=== PATIENT | female | born 1950 | race Caucasian/White ===

== ENCOUNTER 2021-02-21 11:24 | Day surgery (SDC) | payer OTHER, SELFPAY ==
[2021-02-21 12:04] VITALS: BP 115/69; PULSE 73; RESP 14; TEMP 36.6; O2SAT 96; BMI 26.6
[2021-02-21] MEDS: PROPARACAINE 0.5% OPHTH SOL 2 DROPS EYE-OP (12:13)
[2021-02-21] MEDS: CATARACT EYE COMPOUND (10 DROPS/SYRINGE) 3 DROPS EYE-OP (12:13)
--- NOTE | 2021-02-21 12:54 | P.OP_ITS ---
Operative Date/Time/Diagnoses Pre-op diagnosis: Nuclear cataract right eye Procedure & Clinicians Procedure: Cataract Surgery Same procedure as scheduled: Yes Surgeon: Emanuel Nelson Anesthesia Type: MAC +/- and Sedation Operative Notes Procedure in detail: Patient brought to the operating suite. Tetracaine drops placed in the right eye. Marking instrument was used to haresh vertical and horizontal meridians. Patient was prepped and draped in sterile manner. Wire lid speculum was placed in the eye. Marking instrument was used to haresh 110 degree meridian. Betadine drops were placed on the eye. This was irrigated. Lidocaine jelly was placed on the eye. A paracentesis port was created with a side-port blade. 0.1 mL 1% preservative free lidocaine was injected into the anterior chamber. The anterior chamber was deepened with viscoelastic. 2.6 mm keratome was used to create a temporal clear corneal incision. Cystotome and Utrata forceps were used to create continuous tear capsulorrhexis. Balanced salt solution was used to hydro dissect the nucleus. The phacoemulsification handpiece was inserted and the nucleus was removed using the stop and chop technique. The irrigation aspiration handpiece was inserted and the remaining cortex was removed. Anterior chamber was deepened with viscoelastic. An Chinchilla TSM180 intraocular lens with a power of 20.5 was injected into the capsular bag. Irrigation aspiration handpiece was inserted and the remaining viscoelastic was removed. The lens was rotated to the 110 degree meridian. Incision was hydrated with balanced salt solution and found to be leak free with pressure with Weck- Carli sponges. 0.1 mL Vigamox injected anterior chamber. 0.3 mL Kenalog 10 mg was injected subconjunctivally. Lid speculum was removed. The patient left the operating room in excellent condition. Complications: none Post-operative Condition: stable Disposition: same day surgery
--- NOTE | 2021-02-21 12:54 | PM.PREOP ---
Pre-operative Note Interval Note History & Physical reviewed/Exam performed by Physician: Yes Changes to H&P: No
--- NOTE | 2021-02-21 13:05 | SUR.OPER ---
Supine on eye stretcher, head on extension cradle secured with tape. Arms tucked at sides with blanket. Pillow under knees.
[2021-02-21] MEDS: CHONDROIDTIN/SOD HYALURONATE 1.05 ML SYRINGE INTRAOCULA (13:12)
[2021-02-21] MEDS: LIDOCAINE 2% (GLYDO) 6 ML GEL TOP (13:12)
[2021-02-21] MEDS: MOXIFLOXACIN INJ 4 MG/0.8 ML VIAL 0.5 MG EYE-OP (13:13)
[2021-02-21] MEDS: PHENYLEPHRINE/LIDOCAINE VIAL (OR) 0.2 ML EYE-OP (13:13)
[2021-02-21] MEDS: TRIAMCINOLONE 50 MG/5 ML VIAL INJ (13:13)
[2021-02-21] MEDS: TETRACAINE 0.5% OPHTH DROPS 4 ML 2 DROPS EYE-OP (13:13)
[2021-02-21] MEDS: BALANCED SALT IRRIG SOLN NO.2 500 ML, EPINEPHrine 1 MG IRR (13:14)
[2021-02-21 13:30] VITALS: BP 93/49; PULSE 71; RESP 14; TEMP 35.9; O2SAT 95
[2021-02-21 13:45] VITALS: BP 104/60; PULSE 73; RESP 16; TEMP 36.3; O2SAT 97
--- NOTE | 2021-02-21 13:59 | SUR.PHASEII ---
1350 was given juice, crackers, and protein, states that she feels better and is ready to go home.
== END 2021-02-21 13:51 | disposition home or self-care (01) ==
LOC: OR 11:29
PROVIDERS: Referring Provider Ophthalmology; Visit Provider Ophthalmology
PROC: (CPT 66984; principal; 2021-02-21 13:15)
DX: H25.11 Age-related nuclear cataract, right eye (principal); F41.9 Anxiety disorder, unspecified; J45.909 Unspecified asthma, uncomplicated; I10 Essential (primary) hypertension; E78.00 Pure hypercholesterolemia, unspecified; E03.9 Hypothyroidism, unspecified
CPT/HCPCS: 66984; J0171; J2250; J3010; J3301; V2787

== ENCOUNTER 2021-03-07 09:24 | Day surgery (SDC) | payer OTHER, SELFPAY ==
[2021-03-07 10:09] VITALS: BP 125/70; PULSE 71; RESP 16; TEMP 36.1; O2SAT 96; BMI 27.4
[2021-03-07] MEDS: PROPARACAINE 0.5% OPHTH SOL 2 DROPS EYE-OP (10:09)
[2021-03-07] MEDS: CATARACT EYE COMPOUND (10 DROPS/SYRINGE) 3 DROPS EYE-OP (10:26)
--- NOTE | 2021-03-07 10:49 | P.OP_ITS ---
Operative Date/Time/Diagnoses Pre-op diagnosis: Nuclear Cataract Left eye Post-op diagnosis: same Procedure & Clinicians Same procedure as scheduled: Yes Surgeon: Emanuel Nelson Anesthesia Type: MAC +/- and Sedation Operative Notes Procedure in detail: Patient brought to the operating suite. Tetracaine drops placed in the left eye. Marking instrument was used to haresh vertical and horizontal meridians. Patient was prepped and draped in sterile manner. Wire lid speculum was placed in the eye. Marking instrument was used to haresh 65 degree meridian. Betadine drops were placed on the eye. This was irrigated. Lidocaine jelly was placed on the eye. A paracentesis port was created with a side-port blade. 0.1 mL 1% preservative free lidocaine was injected into the anterior chamber. The anterior chamber was deepened with viscoelastic. 2.6 mm keratome was used to create a temporal clear corneal incision. Cystotome and Utrata forceps were used to create continuous tear capsulorrhexis. Balanced salt solution was used to hydro dissect the nucleus. The phacoemulsification handpiece was inserted and the nucleus was removed using the stop and chop technique. The irrigation aspiration handpiece was inserted and the remaining cortex was removed. Anterior chamber was deepened with viscoelastic. An Chinchilla [id number] intraocular lens with a power of 21.5 was injected into the capsular bag. Irrigation aspiration handpiece was inserted and the remaining viscoelastic was removed. The lens was rotated to the 65 degree meridian. Incision was hydrated with balanced salt solution and found to be leak free with pressure with Weck- Carli sponges. 0.1 mL Vigamox injected anterior chamber. 0.3 mL Kenalog 10 mg was injected subconjunctivally. Lid speculum was removed. The patient left the operating room in excellent condition. Complications: none Post-operative Condition: stable Disposition: same day surgery
--- NOTE | 2021-03-07 10:49 | PM.PREOP ---
Pre-operative Note Interval Note History & Physical reviewed/Exam performed by Physician: Yes Changes to H&P: No
[2021-03-07] MEDS: CHONDROIDTIN/SOD HYALURONATE 1.05 ML SYRINGE INTRAOCULA (11:18)
[2021-03-07] MEDS: PHENYLEPHRINE/LIDOCAINE VIAL (OR) 0.2 ML EYE-OP (11:19)
[2021-03-07] MEDS: TETRACAINE 0.5% OPHTH DROPS 4 ML 2 DROPS EYE-OP (11:19)
[2021-03-07] MEDS: LIDOCAINE 2% (GLYDO) 6 ML GEL TOP (11:19)
[2021-03-07] MEDS: MOXIFLOXACIN INJ 4 MG/0.8 ML VIAL 0.5 MG EYE-OP (11:19)
[2021-03-07] MEDS: TRIAMCINOLONE 50 MG/5 ML VIAL INJ (11:19)
[2021-03-07] MEDS: BALANCED SALT IRRIG SOLN NO.2 500 ML, EPINEPHrine 1 MG IRR (11:20)
[2021-03-07 11:37] VITALS: BP 83/49; PULSE 67; RESP 14; TEMP 36.1; O2SAT 98
[2021-03-07] MEDS: LACTATED RINGERS 500 ML 1000 ML IV (12:30)
[2021-03-07 12:35] VITALS: BP 93/54; PULSE 77; RESP 14; O2SAT 97
[2021-03-07 13:03] VITALS: BP 91/54; PULSE 75; RESP 16; O2SAT 96
[2021-03-07 13:15] VITALS: BP 112/58; PULSE 75; RESP 14; O2SAT 97
--- NOTE | 2021-03-07 13:45 | SUR.PHASEII ---
1250 Patient sitting in wheelchair, denies feeling weak or lightheaded but states that she is concerned about her blood pressure. Jay Morse consulted with Dr. Delgadillo - see her notes. Tolerating PO intake well. [address] Delgadillo regarding hypotension. Spoke to patient. She denied feeling weak/dizzy, stated that she needed to go to the bathroom. Ambulated with RN standby, stable of feet. Voided qs with ease. 1315 VS improved after activity, patient pleased and wants to go home. IV dc'd. 1324 To car, pleasant and comfortable without dizziness, light-headedness.
--- NOTE | 2021-03-07 14:20 | SUR.PHASEII ---
Pt arrived from OR with low BP, asymptomatic, stated this happened on her previous eye. Requested juice, crackers and cheese which was provided. BP still low afterwards, spoke with anesthesia and 500 ml bolus ordered and started. Care transfered to Tonya SRIVASTAVA.
== END 2021-03-07 13:24 | disposition home or self-care (01) ==
PROVIDERS: Referring Provider Ophthalmology; Visit Provider Ophthalmology
PROC: (CPT 66984; principal; 2021-03-07 11:15)
DX: H25.12 Age-related nuclear cataract, left eye (principal); F41.9 Anxiety disorder, unspecified; J45.909 Unspecified asthma, uncomplicated; I10 Essential (primary) hypertension; E78.00 Pure hypercholesterolemia, unspecified; E03.9 Hypothyroidism, unspecified
CPT/HCPCS: 66984; J0171; J2250; J3010; J3301; V2787

== ENCOUNTER 2023-04-29 15:43 | Emergency (ER) | payer OTHER, SELFPAY ==
[2023-04-29 15:48] VITALS: BP 115/63; PULSE 64; RESP 18; TEMP 36.9; O2SAT 95; BMI 27.4
--- NOTE | 2023-04-29 15:54 | DI.RAD.S_ITS ---
PROCEDURE: XR KNEE RT 3V INDICATIONS: fall with laceration TECHNIQUE: 3 views of the knee were acquired. COMPARISON: None. FINDINGS: Bones: No fractures or dislocations. No suspicious bony lesions. Soft tissues: Small joint effusion. No suspicious soft tissue calcifications. IMPRESSION: No acute fracture identified. Small nonspecific knee effusion. If symptoms persist, follow-up radiographs and/or CT or MRI may be helpful for further evaluation. Dictated by: Main Jefferson M.D. on 04/29/2023 at 16:39 Approved by: Main Jefferson M.D. on 04/29/2023 at 16:40
--- NOTE | 2023-04-29 16:03 | ED_ITS ---
HPI - Fall <Jose Perez PA-C - Last Filed: 04/29/23 17:29> General Chief Complaint: Fall Stated Complaint: glf Time Seen by Provider: 04/29/23 15:57 Source: patient and EMS Mode of arrival: EMS History of Present Illness HPI Narrative: 72-year-old female brought in by EMS to the ED status post a right knee injury sustained just prior to arrival. Patient states that she sustained a mechanical injury when she was trying to take a picture of a deer, she slipped on some Hand, striking her right knee. No head strike, no loss of consciousness. Patient states that the patellar surface of her knee hurts. Patient denies numbness, tingling, weakness. Last tetanus unknown. Related Data Home Medications Medication Instructions Recorded Confirmed atenolol 50 mg PO DAILY 02/20/21 03/07/21 atorvastatin 80 mg PO DAILY 02/20/21 03/07/21 fluticasone 100 mcg-salmeterol 50 1 inh inhalation BID 02/20/21 03/07/21 mcg/dose blistr powdr for inhalation (Advair Diskus) hydroxyzine HCl 10 mg PO DAILY 02/20/21 03/07/21 levothyroxine 75 mcg PO DAILY 02/20/21 03/07/21 lisinopril 10 mg PO DAILY 02/20/21 03/07/21 quetiapine 25 mg PO BEDTIME 02/20/21 03/07/21 aspirin 81 mg tablet 81 mg PO DAILY 03/07/21 03/07/21 Allergies Allergy/AdvReac Type Severity Reaction Status Date / Time amoxicillin Allergy Verified 04/29/23 15:48 Review of Systems <Jose Perez PA-C - Last Filed: 04/29/23 17:29> Review of Systems ROS Unobtainable: All systems reviewed & are unremarkable except as noted in HPI and below Constitutional Constitutional: Denies chills, Denies fatigue, Denies fever(s), Denies frequent falls, Denies lethargy and Denies weakness Eyes Eyes: Denies change in vision, Denies eye discharge, Denies irritation and Denies loss of vision ENT Ears, Nose, Mouth, and Throat: Denies change in voice, Denies dizziness, Denies neck pain, Denies sore throat and Denies throat swelling Cardiovascular Cardiovascular: Denies chest pain, Denies irregular heart rhythm, Denies lightheadedness, Denies palpitations, Denies dyspnea, Denies dyspnea on exertion and Denies orthopnea Respiratory Respiratory: Denies cough, Denies dyspnea, Denies dyspnea on exertion and Denies wheezing Gastrointestinal Gastrointestinal: Denies abdominal pain, Denies change in bowel habits, Denies diarrhea, Denies nausea and Denies vomiting Genitourinary Genitourinary: Denies hematuria, Denies flank pain, Denies urinary incontinence and Denies urinary urgency Musculoskeletal Musculoskeletal: Denies back pain, Denies muscle weakness, Denies neck pain, Denies numbness and Denies tingling Integumentary/Breasts Skin/Breast: Denies pruritus, Denies erythema, Denies rash and Reports wounds Comments: R knee laceration Neurologic Neurologic: Denies behavioral changes, Denies confusion, Denies dizziness, Denies frequent falls, Denies loss of vision, Denies numbness, Denies tingling and Denies weakness Psychiatric Psychiatric: Denies anxiety, Denies behavioral changes, Denies confusion, Denies depression, Denies homicidal ideation and Denies suicidal ideation Endocrine Endocrine: Denies fatigue, Denies flushing and Denies palpitations Hematologic/Lymphatic Hematologic/Lymphatic: Denies easy bruising Allergic/Immunologic Allergic/Immunologic: Denies urticaria, Denies throat swelling and Denies wheezing Patient History <Jose Perez PA-C - Last Filed: 04/29/23 17:29> Medical History (Updated 04/29/23 @ 17:20 by Jose Perez PA-C) Anxiety Asthma HTN (hypertension) Hypothyroid Insomnia Social History household members: none Smoking Status: Current every day smoker alcohol intake: current Smoking Status: Current every day smoker alcohol intake frequency: 3 or more drinks per day Substance Use Type: does not use Exam <Jose Perez PA-C - Last Filed: 04/29/23 17:29> Narrative Exam Narrative: Const General:?cooperative, healthy appearing and comfortable [facility] Head:?normal to inspection Ears:?hearing grossly normal bilaterally Nose:?external nose normal Face and sinus:?normal facial exam and sinuses nontender Mouth:?oral mucosae normal Throat:?posterior oropharynx normal Eyes General:?appearance normal, both eyes and all related structures Neck Neck:?normal visual inspection and no lymphadenopathy noted Resp Effort & Inspection:?normal respiratory effort Auscultation:?clear to auscultation bilaterally Cardio Rate:?regular rate Rhythm:?regular rhythm Integumentary 4 cm transverse laceration to the patellar surface of the right knee. Bleeding controlled with pressure. No internal structures visualized on exam. There is full range of motion. Strength and sensation is intact. Patient is neurovascularly intact. Neuro General:?patient alert, patient awake and patient oriented x3 Initial Vital Signs Initial Vital Signs: Vital Signs Temperature 98.4 F 04/29/23 15:48 Pulse Rate 64 04/29/23 15:48 Respiratory Rate 18 04/29/23 15:48 Blood Pressure 115/63 04/29/23 15:48 Pulse Oximetry 95 04/29/23 15:48 Oxygen Delivery Method Room Air 04/29/23 15:48 <Lydia Link DO - Last Filed: 05/01/23 07:53> Initial Vital Signs Initial Vital Signs: Vital Signs Temperature 98.4 F 04/29/23 15:48 Pulse Rate 64 04/29/23 15:48 Respiratory Rate 18 04/29/23 15:48 Blood Pressure 115/63 04/29/23 15:48 Pulse Oximetry 95 04/29/23 15:48 Oxygen Delivery Method Room Air 04/29/23 15:48 Procedures <JACOBY Knott Last Filed: 04/29/23 17:29> Laceration Repair Laceration 1: Site: lower extremity Side (If applicable): right Size (cm): 4 Description: irregular Depth: simple, single layer Local Anesthetic: lidocaine 2% and with epi Amount of anesthesia used (mL): 2 Pre-repair: wound explored, irrigated extensively and deep structures intact Skin layer closed with: nylon Skin layer suture size: 4-0 Number of sutures: 9 Technique: simple, interrupted Course <JACOBY Knott Last Filed: 04/29/23 17:29> Orders Ordered: Discontinued Medications Bacitracin (Bacitracin Oint 0.9 Gm Pckt) 1 applic TOP NOW ONE Stop: 04/29/23 17:22 Last Admin: 04/29/23 17:30 Dose: 1 applic Documented By: CTS Diphtheria/Tetanus/Acell Pertussis (Tet,Diph,Pertuss(Acell),Vac/Pf 0.5 Ml Syringe) 0.5 ml IM .ONCE ONE Stop: 04/29/23 17:21 Last Admin: 04/29/23 17:28 Dose: 0.5 ml Documented By: CTS Lidocaine/Epinephrine (Lidocaine 2% W/Epi Inj) 20 ml INJ INTRA-OP ONE Stop: 04/29/23 16:08 Last Admin: 04/29/23 17:30 Dose: 6 ml Documented By: CTS Vital Signs Vital signs: Vital Signs - 8 hr 04/29/23 15:48 Temperature 98.4 F Pulse Rate 64 Respiratory Rate 18 Blood Pressure 115/63 Pulse Oximetry 95 Oxygen Delivery Method Room Air <Lydia Link DO - Last Filed: 05/01/23 07:53> Orders Ordered: Discontinued Medications Bacitracin (Bacitracin Oint 0.9 Gm Pckt) 1 applic TOP NOW ONE Stop: 04/29/23 17:22 Last Admin: 04/29/23 17:30 Dose: 1 applic Documented By: CTS Diphtheria/Tetanus/Acell Pertussis (Tet,Diph,Pertuss(Acell),Vac/Pf 0.5 Ml Syringe) 0.5 ml IM .ONCE ONE Stop: 04/29/23 17:21 Last Admin: 04/29/23 17:28 Dose: 0.5 ml Documented By: CTS Lidocaine/Epinephrine (Lidocaine 2% W/Epi Inj) 20 ml INJ INTRA-OP ONE Stop: 04/29/23 16:08 Last Admin: 04/29/23 17:30 Dose: 6 ml Documented By: CTS Vital Signs Vital signs: Vital Signs - 8 hr 04/29/23 15:48 Temperature 98.4 F Pulse Rate 64 Respiratory Rate 18 Blood Pressure 115/63 Pulse Oximetry 95 Oxygen Delivery Method Room Air MDM - Fall <Jose Perez PA-C - Last Filed: 04/29/23 17:29> [facility] Narrative Medical decision making narrative: 72-year-old female brought in by EMS to the ED status post a right knee injury sustained just prior to arrival. Concern for fracture/dislocation versus laceration. X-ray was obtained with no acute findings. Laceration was sutured with 9 sutures. Sutures will need to be removed in 10-14 days. Tetanus was updated today. Wound care instructions, signs of injury discussed with patient. ED return precautions discussed with patient. Patient verbalized understanding. Medical records reviewed: Yes Discharge Plan Departure Patient Disposition: Home Clinical Impression: Laceration Instructions: DI for Laceration Repair, How to Prevent Falls Activity Restrictions/Additional Instructions: You were evaluated in the ED today for a right knee injury. Your x-ray did not show any fractures or dislocations. The laceration was repaired with 9 sutures. Your sutures will need to be removed in 10-14 days. Please follow-up with your PCP for suture removal or go to a walk-in clinic or return to the ED. Please watch for signs of infection including worsening redness, warmth, pain, swelling, discharge at the site of the injury. Please return to the ED if you note any signs of infection. Your tetanus was also updated today. Prescriptions: No Action fluticasone propion-salmeterol [Advair Diskus] 100-50 mcg/dose Blister With Device 1 inh INHALATION BID atenolol 50 mg PO DAILY atorvastatin 80 mg PO DAILY hydroxyzine HCl 10 mg PO DAILY levothyroxine 75 mcg PO DAILY lisinopril 10 mg PO DAILY quetiapine 25 mg PO BEDTIME aspirin 81 mg Tablet 81 mg PO DAILY Stand Alone Forms: Patient Portal/API <Lydia Link DO - Last Filed: 05/01/23 07:53> Cosign ED Attending Cosignature Attestation: I was immediately available in the department for consultation. Documentation has been reviewed.
[2023-04-29] MEDS: TET,DIPH,PERTUSS(ACELL),VAC/PF 0.5 ML SYRINGE IM (17:28)
[2023-04-29] MEDS: BACITRACIN OINT 0.9 GM PCKT 1 APPLIC TOP (17:30)
[2023-04-29] MEDS: LIDOCAINE 2% W/EPI INJ 20 ML INJ (17:30)
== END 2023-04-29 17:39 | disposition home or self-care (01) ==
PROVIDERS: Emergency Provider Student in an Organized Health Care Education/Training Program
DX: S81.811A Laceration without foreign body, right lower leg, initial encounter (principal); W18.30XA Fall on same level, unspecified, initial encounter; Z79.899 Other long term (current) drug therapy; Z23 Encounter for immunization
CPT/HCPCS: 12002; 73562; 90471; 99283; 99284; 90715

== ENCOUNTER 2024-01-29 19:10 | Emergency (ER) | payer OTHER, SELFPAY ==
[2024-01-29] VITALS (76 sets, daily range): BP systolic 167–222; BP diastolic 76–110; PULSE 72–101; RESP 11–32; TEMP 36.7; O2SAT 86–97; BMI 26.9
--- NOTE | 2024-01-29 19:29 | DI.CT.S_ITS ---
PROCEDURE: CT HEAD/BRAIN WO CON INDICATIONS: headache, hypertensive crisis TECHNIQUE: Noncontrast 4.5 mm thick angled axial sections acquired from the foramen magnum to the vertex, with coronal and sagittal reformats. For radiation dose reduction, the following was used: automated exposure control, adjustment of mA and/or kV according to patient size. COMPARISON: None. FINDINGS: Image quality: Diagnostic. CSF spaces: Basal cisterns are patent. No extra-axial fluid collections. Ventricles are normal in size and shape. Brain: No midline shift. No intracranial masses or hemorrhage. No area of hypodensity in a large vascular distribution to suggest acute infarction. Periventricular hypodensity consistent with chronic microvascular ischemic change. Age-related parenchymal loss. Skull and face: Calvarium and visualized facial bones are intact, without suspicious lesions. Sinuses: Paranasal sinus mucosal thickening. Mastoids are clear. IMPRESSION: No acute intracranial pathology identified. Dictated by: Mk Frances M.D. on 01/29/2024 at 20:31 Approved by: Mk Frances M.D. on 01/29/2024 at 20:34
[2024-01-29 19:44] LABS: Add Manual Diff / Slide Review NO; Basophils Absolute Auto 0 /uL (0-100); Basophils Percent Auto 0.4 % (0-2); Eosinophils Absolute Auto 0 /uL (0-450); Eosinophils Percent Auto 0.1 % (2-4); Hematocrit 31.1 % (36-46); Hemoglobin 10.8 g/dL (12.0-16.0); Lymphocytes Absolute Auto 400 /uL (1100-4500); Lymphocytes Percent Auto 6.4 % (25-40); Mean Corpuscular HGB Conc 34.6 % (30-36); Mean Corpuscular Volume 92.6 fL (80-100); Monocytes Absolute Auto 100 /uL (0-900); Neutrophils Absolute Auto 5100 /uL (1500-7000); Neutrophils Percent Auto 91.1 % (50-75); Platelet Count 167 X10^3/uL (150-400); Red Blood Cell Count 3.36 X10^6/uL (4.0-5.2); Red Cell Distribution Width 15.7 % (11.6-14.8); White Blood Cell Count 5.6 X10^3/uL (4.5-11.0)
[2024-01-29 19:57] LABS: Lactate (Lactic Acid) 1.3 mmol/L (0.7-2.1)
[2024-01-29 19:59] LABS: Alanine Aminotransferase 13 IU/L (<35); Albumin 4.5 g/dL (3.5-5.0); Alkaline Phosphatase 64 U/L (38-126); Aspartate Aminotransferase 26 IU/L (14-36); BUN Creatinine Ratio 4.8 (6-22); Bilirubin Total 0.7 mg/dL (0.2-1.3); Blood Urea Nitrogen 25 mg/dL (7-17); Calcium 8.9 mg/dL (8.4-10.2); Carbon Dioxide 28 mmol/L (22-32); Chloride 97 mmol/L (98-107); Estimated Glomerular Filt Rate 8 mL/min (>60); Globulin 2.3 g/dL (1.7-4.1); Glucose 120 mg/dL (80-110); HEMOLYSIS < 15 (0-50); Lipase 166 U/L (23-300); Magnesium 1.9 mg/dL (1.6-2.3); Potassium 4.2 mmol/L (3.4-5.1); Sodium 133 mmol/L (137-145); Total Protein 6.8 g/dL (6.3-8.2)
[2024-01-29] MEDS: ONDANSETRON 4 MG/2 ML INJ IV (20:05)
[2024-01-29 20:10] LABS: Troponin I 0.042 ng/mL (0.01-0.034)
--- NOTE | 2024-01-29 20:10 | ED.GENADULT ---
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 Initially sent home with a diagnosis of acute neck strain. Ended up calling EMS because she is simply was not feeling well, increasing the anxious, nausea blood pressure significantly elevated and headache as well as dyspnea. Patient reportedly lives independently. She is confused with our initial discussion. Continues to complain of general malaise, nausea, with the nicardipine drip in place she is no longer having headache or dyspnea. She never complained of overt chest pain. Related Data Home Medications Medication Instructions Recorded Confirmed atenolol 50 mg PO DAILY 02/20/21 03/07/21 atorvastatin 80 mg PO DAILY 02/20/21 03/07/21 fluticasone 100 mcg-salmeterol 50 1 inh inhalation BID 02/20/21 03/07/21 mcg/dose blistr powdr for inhalation (Advair Diskus) hydroxyzine HCl 10 mg PO DAILY 02/20/21 03/07/21 levothyroxine 75 mcg PO DAILY 02/20/21 03/07/21 lisinopril 10 mg PO DAILY 02/20/21 03/07/21 quetiapine 25 mg PO BEDTIME 02/20/21 03/07/21 aspirin 81 mg tablet 81 mg PO DAILY 03/07/21 03/07/21 Allergies Allergy/AdvReac Type Severity Reaction Status Date / Time amoxicillin Allergy Verified 01/29/24 19:25 Review of Systems Review of Systems Narrative: Pertinent positive and negative findings as per HPI Patient History Medical History Hemodialysis patient Goodpasture syndrome Hypothyroid Insomnia HTN (hypertension) Asthma Anxiety Social History household members: none Smoking Status: Current every day smoker alcohol intake: current Smoking Status: Current every day smoker alcohol intake frequency: 3 or more drinks per day Substance Use Type: does not use Exam Initial Vital Signs Initial Vital Signs: Vital Signs Temperature 98.0 F 01/29/24 19:10 Pulse Rate 83 01/29/24 19:10 Respiratory Rate 16 01/29/24 19:10 Blood Pressure 220/110 H 01/29/24 19:10 Pulse Oximetry 91 01/29/24 19:10 Oxygen Delivery Method Room Air 01/29/24 19:10 General: Chronically ill-appearing, confused, no significant respiratory distress HEENT: Moist mucous membranes, normal sclera with reactive pupils, Neck: No JVD, no cervical adenopathy Respiratory: Lungs are clear to auscultation, no wheezing no rales no rhonchi. Full and symmetrical air movement. Tunneled dialysis catheter in the right upper chest wall Cardiac: Regular rate and rhythm no murmurs no bruits Abdomen: Soft, nontender, good bowel tones, no flank pain Skin: Warm and dry, no rashes Neurologic: She is moving all extremities, she is confused regarding events, date. She is aware who she is and with direction can confirm where she is Extremities: No trauma, no significant lower extremity edema Psych: Significant confusion Course Orders Ordered: ED Orders 01/29/24 19:29 CT head/brain wo con Stat EKG-12 Lead Stat 01/29/24 19:34 Complete Blood Count AUTO DIFF Stat Comprehensive Metabolic Panel Stat Lactate (Lactic Acid) Stat Lipase Stat Magnesium Stat Procalcitonin Stat Troponin I Stat 01/29/24 20:47 Blood Culture Stat 01/29/24 21:24 XR chest 1V Stat 01/29/24 21:26 UA Complete [Urinalysis and Microscopic] Stat 01/29/24 21:32 Trop I [Troponin I] Stat Nicardipine HCl 25 mg/ Sodium (Chloride) 250 mls @ 50 mls/hr IV TITRATE BAYLEE; Protocol Last Titration: 01/30/24 00:28 Dose: 1.5 mg/hr, 15 mls/hr Documented By: Titration: 01/30/24 00:00 Dose: 1 mg/hr, 10 mls/hr Documented By: DKShree Titration: 01/29/24 23:35 Dose: 1.5 mg/hr, 15 mls/hr Documented By: Titration: 01/29/24 23:10 Dose: 2 mg/hr, 20 mls/hr Documented By: Titration: 01/29/24 22:57 Dose: 0 mg/hr, 0 mls/hr Documented By: Titration: 01/29/24 22:35 Dose: 2.5 mg/hr, 25 mls/hr Documented By: Titration: 01/29/24 22:17 Dose: 0 mg/hr, 0 mls/hr Documented By: Titration: 01/29/24 21:42 Dose: 2.5 mg/hr, 25 mls/hr Documented By: Titration: 01/29/24 21:22 Dose: 0 mg/hr, 0 mls/hr Documented By: Titration: 01/29/24 20:58 Dose: 2.5 mg/hr, 25 mls/hr Documented By: Admin: 01/29/24 20:30 Dose: 5 mg/hr, 50 mls/hr Documented By: DYLLAN Discontinued Medications Acetaminophen (Acetaminophen 325 Mg Tablet) 975 mg PO NOW ONE Stop: 01/30/24 00:04 Last Admin: 01/30/24 00:07 Dose: 975 mg Documented By: JONATHAN Amlodipine Besylate (Amlodipine 5 Mg Tablet) 5 mg PO NOW ONE Stop: 01/29/24 21:25 Last Admin: 01/29/24 21:41 Dose: 5 mg Documented By: RODNEY Metoprolol Tartrate (Metoprolol Ir 25 Mg Tablet) 25 mg PO NOW ONE Stop: 01/29/24 21:25 Last Admin: 01/29/24 21:41 Dose: 25 mg Documented By: RODNEY Ondansetron HCl (Ondansetron 4 Mg/2 Ml Inj) 4 mg IV NOW ONE Stop: 01/29/24 20:13 Last Admin: 01/29/24 20:05 Dose: 4 mg Documented By: DYLLAN Vital Signs Vital signs: Vital Signs - 8 hr 01/29/24 19:10 01/29/24 19:16 01/29/24 19:16 Temperature 98.0 F Pulse Rate 83 91 H Respiratory Rate 16 Blood Pressure 220/110 H 222/110 H Pulse Oximetry 91 Oxygen Delivery Method Room Air Oxygen Flow Rate 01/29/24 19:30 01/29/24 19:35 01/29/24 19:35 Temperature Pulse Rate 82 80 Respiratory Rate 14 14 Blood Pressure 218/101 H Pulse Oximetry 90 L 92 Oxygen Delivery Method Room Air Room Air Oxygen Flow Rate 01/29/24 20:15 01/29/24 20:16 01/29/24 20:16 Temperature Pulse Rate 81 86 Respiratory Rate 21 Blood Pressure 218/95 H Pulse Oximetry 93 93 Oxygen Delivery Method Oxygen Flow Rate 01/29/24 20:26 01/29/24 20:26 01/29/24 20:30 Temperature Pulse Rate 82 83 Respiratory Rate 20 15 Blood Pressure 215/95 H Pulse Oximetry 96 95 Oxygen Delivery Method Oxygen Flow Rate 01/29/24 20:38 01/29/24 20:38 01/29/24 20:39 Temperature Pulse Rate 81 81 Respiratory Rate 20 16 Blood Pressure 219/108 H Pulse Oximetry 96 96 Oxygen Delivery Method Oxygen Flow Rate 01/29/24 20:39 01/29/24 20:42 01/29/24 20:42 Temperature Pulse Rate 86 Respiratory Rate 17 Blood Pressure 201/98 H 194/98 H Pulse Oximetry 95 Oxygen Delivery Method Oxygen Flow Rate 01/29/24 20:45 01/29/24 20:45 01/29/24 20:48 Temperature Pulse Rate 89 Respiratory Rate 15 Blood Pressure 178/88 H 184/89 H Pulse Oximetry 95 Oxygen Delivery Method Oxygen Flow Rate 01/29/24 20:48 01/29/24 20:51 01/29/24 20:51 Temperature Pulse Rate 88 89 Respiratory Rate 18 19 Blood Pressure 181/88 H Pulse Oximetry 95 96 Oxygen Delivery Method Oxygen Flow Rate 01/29/24 20:54 01/29/24 20:54 01/29/24 20:57 Temperature Pulse Rate 101 H 98 H Respiratory Rate 27 H 23 Blood Pressure 170/83 H Pulse Oximetry 95 93 Oxygen Delivery Method Oxygen Flow Rate 01/29/24 20:57 01/29/24 21:00 01/29/24 21:00 Temperature Pulse Rate 92 H Respiratory Rate 22 Blood Pressure 182/87 H 182/89 H Pulse Oximetry 95 Oxygen Delivery Method Oxygen Flow Rate 01/29/24 21:03 01/29/24 21:03 01/29/24 21:06 Temperature Pulse Rate 89 91 H Respiratory Rate 17 23 Blood Pressure 189/91 H Pulse Oximetry 94 95 Oxygen Delivery Method Oxygen Flow Rate 01/29/24 21:06 01/29/24 21:09 01/29/24 21:09 Temperature Pulse Rate 91 H Respiratory Rate 23 Blood Pressure 184/90 H 183/92 H Pulse Oximetry 96 Oxygen Delivery Method Nasal Cannula Oxygen Flow Rate 2 01/29/24 21:12 01/29/24 21:12 01/29/24 21:15 Temperature Pulse Rate 98 H Respiratory Rate 23 Blood Pressure 181/86 H 180/86 H Pulse Oximetry 97 Oxygen Delivery Method Oxygen Flow Rate 01/29/24 21:15 01/29/24 21:18 01/29/24 21:18 Temperature Pulse Rate 98 H 91 H Respiratory Rate 21 17 Blood Pressure 178/94 H Pulse Oximetry 95 94 Oxygen Delivery Method Oxygen Flow Rate 01/29/24 21:21 01/29/24 21:21 01/29/24 21:25 Temperature Pulse Rate 101 H Respiratory Rate 25 H Blood Pressure 167/79 H 189/87 H Pulse Oximetry 94 Oxygen Delivery Method Oxygen Flow Rate 01/29/24 21:25 01/29/24 21:27 01/29/24 21:27 Temperature Pulse Rate 89 90 Respiratory Rate 21 23 Blood Pressure 187/88 H Pulse Oximetry 95 95 Oxygen Delivery Method Oxygen Flow Rate 01/29/24 21:30 01/29/24 21:30 01/29/24 21:33 Temperature Pulse Rate 96 H 97 H Respiratory Rate 29 H 30 H Blood Pressure 173/81 H Pulse Oximetry 87 L 86 L Oxygen Delivery Method Nasal Cannula Nasal Cannula Oxygen Flow Rate 2 2 01/29/24 21:33 01/29/24 21:36 01/29/24 21:36 Temperature Pulse Rate 95 H Respiratory Rate 25 H Blood Pressure 185/88 H 178/85 H Pulse Oximetry 89 L Oxygen Delivery Method Nasal Cannula Oxygen Flow Rate 3 01/29/24 21:39 01/29/24 21:39 01/29/24 21:42 Temperature Pulse Rate 90 85 Respiratory Rate 21 20 Blood Pressure 201/90 H Pulse Oximetry 92 94 Oxygen Delivery Method Nasal Cannula Nasal Cannula Oxygen Flow Rate 3 3 01/29/24 21:42 01/29/24 21:45 01/29/24 21:45 Temperature Pulse Rate 84 Respiratory Rate 19 Blood Pressure 201/98 H 194/90 H Pulse Oximetry 94 Oxygen Delivery Method Nasal Cannula Oxygen Flow Rate 3 01/29/24 21:48 01/29/24 21:48 01/29/24 21:51 Temperature Pulse Rate 89 Respiratory Rate 21 Blood Pressure 189/93 H 185/86 H Pulse Oximetry 95 Oxygen Delivery Method Nasal Cannula Oxygen Flow Rate 3 01/29/24 21:51 01/29/24 21:54 01/29/24 21:54 Temperature Pulse Rate 85 85 Respiratory Rate 20 20 Blood Pressure 183/91 H Pulse Oximetry 94 94 Oxygen Delivery Method Nasal Cannula Nasal Cannula Oxygen Flow Rate 3 3 01/29/24 21:57 01/29/24 21:57 01/29/24 22:00 Temperature Pulse Rate 86 86 Respiratory Rate 25 H 18 Blood Pressure 180/87 H Pulse Oximetry 95 95 Oxygen Delivery Method Nasal Cannula Nasal Cannula Oxygen Flow Rate 3 3 01/29/24 22:00 01/29/24 22:03 01/29/24 22:03 Temperature Pulse Rate 83 Respiratory Rate 19 Blood Pressure 176/82 H 183/88 H Pulse Oximetry 95 Oxygen Delivery Method Nasal Cannula Oxygen Flow Rate 3 01/29/24 22:06 01/29/24 22:06 01/29/24 22:09 Temperature Pulse Rate 82 82 Respiratory Rate 19 20 Blood Pressure 181/82 H Pulse Oximetry 95 95 Oxygen Delivery Method Nasal Cannula Nasal Cannula Oxygen Flow Rate 3 3 01/29/24 22:09 01/29/24 22:12 01/29/24 22:12 Temperature Pulse Rate 85 Respiratory Rate 22 Blood Pressure 177/84 H 176/83 H Pulse Oximetry 96 Oxygen Delivery Method Nasal Cannula Oxygen Flow Rate 3 01/29/24 22:15 01/29/24 22:15 01/29/24 22:18 Temperature Pulse Rate 89 84 Respiratory Rate 24 23 Blood Pressure 173/85 H Pulse Oximetry 96 96 Oxygen Delivery Method Nasal Cannula Nasal Cannula Oxygen Flow Rate 3 3 01/29/24 22:18 01/29/24 22:21 01/29/24 22:21 Temperature Pulse Rate 81 Respiratory Rate 21 Blood Pressure 181/89 H 185/88 H Pulse Oximetry 95 Oxygen Delivery Method Nasal Cannula Oxygen Flow Rate 3 01/29/24 22:24 01/29/24 22:24 01/29/24 22:27 Temperature Pulse Rate 82 Respiratory Rate 23 Blood Pressure 187/91 H 188/95 H Pulse Oximetry 95 Oxygen Delivery Method Nasal Cannula Oxygen Flow Rate 3 01/29/24 22:27 01/29/24 22:30 01/29/24 22:30 Temperature Pulse Rate 78 79 Respiratory Rate 27 H 20 Blood Pressure 189/94 H Pulse Oximetry 95 95 Oxygen Delivery Method Nasal Cannula Nasal Cannula Oxygen Flow Rate 3 3 01/29/24 22:33 01/29/24 22:33 01/29/24 22:36 Temperature Pulse Rate 80 87 Respiratory Rate 27 H 31 H Blood Pressure 192/95 H Pulse Oximetry 95 91 Oxygen Delivery Method Nasal Cannula Nasal Cannula Oxygen Flow Rate 3 3 01/29/24 22:36 01/29/24 22:39 01/29/24 22:39 Temperature Pulse Rate 81 Respiratory Rate 20 Blood Pressure 189/92 H 179/92 H Pulse Oximetry 93 Oxygen Delivery Method Nasal Cannula Oxygen Flow Rate 3 01/29/24 22:42 01/29/24 22:42 01/29/24 22:45 Temperature Pulse Rate 79 Respiratory Rate 20 Blood Pressure 189/95 H 192/94 H Pulse Oximetry 95 Oxygen Delivery Method Oxygen Flow Rate 01/29/24 22:45 01/29/24 22:48 01/29/24 22:48 Temperature Pulse Rate 80 80 Respiratory Rate 21 22 Blood Pressure 175/86 H Pulse Oximetry 94 94 Oxygen Delivery Method Oxygen Flow Rate 01/29/24 22:51 01/29/24 22:51 01/29/24 22:54 Temperature Pulse Rate 79 Respiratory Rate 22 Blood Pressure 177/95 H 168/87 H Pulse Oximetry 93 Oxygen Delivery Method Oxygen Flow Rate 01/29/24 22:54 01/29/24 22:57 01/29/24 22:57 Temperature Pulse Rate 87 81 Respiratory Rate 32 H 11 L Blood Pressure 186/91 H Pulse Oximetry 94 93 Oxygen Delivery Method Oxygen Flow Rate 01/29/24 23:00 01/29/24 23:00 01/29/24 23:03 Temperature Pulse Rate 75 Respiratory Rate 16 Blood Pressure 195/93 H 185/95 H Pulse Oximetry 94 Oxygen Delivery Method Oxygen Flow Rate 01/29/24 23:03 01/29/24 23:06 01/29/24 23:06 Temperature Pulse Rate 72 74 Respiratory Rate 19 20 Blood Pressure 193/102 H Pulse Oximetry 94 96 Oxygen Delivery Method Oxygen Flow Rate 01/29/24 23:09 01/29/24 23:09 01/29/24 23:12 Temperature Pulse Rate 77 72 Respiratory Rate 21 21 Blood Pressure 181/97 H Pulse Oximetry 96 96 Oxygen Delivery Method Oxygen Flow Rate 01/29/24 23:12 01/29/24 23:15 01/29/24 23:15 Temperature Pulse Rate 73 Respiratory Rate 17 Blood Pressure 185/95 H 189/90 H Pulse Oximetry 95 Oxygen Delivery Method Oxygen Flow Rate 01/29/24 23:18 01/29/24 23:18 01/29/24 23:21 Temperature Pulse Rate 74 73 Respiratory Rate 21 19 Blood Pressure 180/91 H Pulse Oximetry 96 95 Oxygen Delivery Method Oxygen Flow Rate 01/29/24 23:21 01/29/24 23:24 01/29/24 23:24 Temperature Pulse Rate 74 Respiratory Rate 17 Blood Pressure 185/88 H 172/86 H Pulse Oximetry 95 Oxygen Delivery Method Oxygen Flow Rate 01/29/24 23:27 01/29/24 23:27 01/29/24 23:30 Temperature Pulse Rate 73 Respiratory Rate 20 Blood Pressure 183/90 H 179/86 H Pulse Oximetry 95 Oxygen Delivery Method Oxygen Flow Rate 01/29/24 23:30 01/29/24 23:33 01/29/24 23:33 Temperature Pulse Rate 76 74 Respiratory Rate 15 20 Blood Pressure 174/85 H Pulse Oximetry 94 95 Oxygen Delivery Method Oxygen Flow Rate 01/29/24 23:36 01/29/24 23:36 01/29/24 23:39 Temperature Pulse Rate 73 73 Respiratory Rate 12 13 Blood Pressure 176/88 H Pulse Oximetry 95 95 Oxygen Delivery Method Oxygen Flow Rate 01/29/24 23:39 01/29/24 23:42 01/29/24 23:42 Temperature Pulse Rate 75 Respiratory Rate 20 Blood Pressure 174/89 H 176/87 H Pulse Oximetry 95 Oxygen Delivery Method Oxygen Flow Rate 01/29/24 23:45 01/29/24 23:45 01/29/24 23:48 Temperature Pulse Rate 77 Respiratory Rate 21 Blood Pressure 177/87 H 174/76 H Pulse Oximetry 95 Oxygen Delivery Method Oxygen Flow Rate 01/29/24 23:48 01/29/24 23:51 01/29/24 23:51 Temperature Pulse Rate 83 80 Respiratory Rate 22 12 Blood Pressure 176/84 H Pulse Oximetry 91 94 Oxygen Delivery Method Oxygen Flow Rate 01/29/24 23:54 01/29/24 23:54 01/29/24 23:57 Temperature Pulse Rate 84 86 Respiratory Rate 25 H 24 Blood Pressure 173/84 H Pulse Oximetry 93 94 Oxygen Delivery Method Oxygen Flow Rate 01/29/24 23:57 01/30/24 00:00 01/30/24 00:00 Temperature Pulse Rate 84 Respiratory Rate 22 Blood Pressure 167/82 H 180/89 H Pulse Oximetry 91 Oxygen Delivery Method Oxygen Flow Rate 01/30/24 00:03 01/30/24 00:03 01/30/24 00:06 Temperature Pulse Rate 81 Respiratory Rate 17 Blood Pressure 182/92 H 186/95 H Pulse Oximetry 93 Oxygen Delivery Method Oxygen Flow Rate 01/30/24 00:06 01/30/24 00:10 01/30/24 00:10 Temperature Pulse Rate 81 83 Respiratory Rate 23 23 Blood Pressure 184/97 H Pulse Oximetry 94 95 Oxygen Delivery Method Oxygen Flow Rate 01/30/24 00:12 01/30/24 00:12 01/30/24 00:15 Temperature Pulse Rate 81 80 Respiratory Rate 21 19 Blood Pressure 188/97 H Pulse Oximetry 94 95 Oxygen Delivery Method Oxygen Flow Rate 01/30/24 00:15 01/30/24 00:18 01/30/24 00:18 Temperature Pulse Rate 79 Respiratory Rate 20 Blood Pressure 192/100 H 193/99 H Pulse Oximetry 95 Oxygen Delivery Method Oxygen Flow Rate 01/30/24 00:21 01/30/24 00:21 01/30/24 00:24 Temperature Pulse Rate 79 80 Respiratory Rate 16 21 Blood Pressure 193/97 H Pulse Oximetry 95 96 Oxygen Delivery Method Oxygen Flow Rate 01/30/24 00:24 01/30/24 00:27 01/30/24 00:27 Temperature Pulse Rate 80 Respiratory Rate 21 Blood Pressure 193/98 H 179/94 H Pulse Oximetry 94 Oxygen Delivery Method Oxygen Flow Rate 01/30/24 00:30 01/30/24 00:30 01/30/24 00:33 Temperature Pulse Rate 80 80 Respiratory Rate 13 11 L Blood Pressure 181/101 H Pulse Oximetry 94 94 Oxygen Delivery Method Oxygen Flow Rate 01/30/24 00:33 01/30/24 00:36 01/30/24 00:36 Temperature Pulse Rate 79 Respiratory Rate 14 Blood Pressure 181/90 H 179/93 H Pulse Oximetry 94 Oxygen Delivery Method Oxygen Flow Rate 01/30/24 00:39 01/30/24 00:39 01/30/24 00:42 Temperature Pulse Rate 74 76 Respiratory Rate 18 18 Blood Pressure 176/92 H Pulse Oximetry 95 95 Oxygen Delivery Method Oxygen Flow Rate 01/30/24 00:42 01/30/24 00:45 01/30/24 00:45 Temperature Pulse Rate 75 Respiratory Rate 17 Blood Pressure 174/90 H 176/91 H Pulse Oximetry 95 Oxygen Delivery Method Oxygen Flow Rate 01/30/24 00:48 01/30/24 00:48 01/30/24 00:51 Temperature Pulse Rate 77 76 Respiratory Rate 15 12 Blood Pressure 177/87 H Pulse Oximetry 95 95 Oxygen Delivery Method Oxygen Flow Rate 01/30/24 00:51 01/30/24 00:54 01/30/24 00:54 Temperature Pulse Rate 76 Respiratory Rate 17 Blood Pressure 183/89 H 181/88 H Pulse Oximetry 95 Oxygen Delivery Method Oxygen Flow Rate 01/30/24 00:57 01/30/24 00:57 01/30/24 01:00 Temperature Pulse Rate 77 Respiratory Rate 21 Blood Pressure 182/88 H 170/82 H Pulse Oximetry 95 Oxygen Delivery Method Oxygen Flow Rate 01/30/24 01:00 01/30/24 01:03 01/30/24 01:03 Temperature Pulse Rate 87 83 Respiratory Rate 24 22 Blood Pressure 188/90 H Pulse Oximetry 93 93 Oxygen Delivery Method Oxygen Flow Rate 01/30/24 01:06 01/30/24 01:06 01/30/24 01:09 Temperature Pulse Rate 83 88 Respiratory Rate 12 23 Blood Pressure 186/91 H Pulse Oximetry 94 94 Oxygen Delivery Method Oxygen Flow Rate 01/30/24 01:09 01/30/24 01:12 01/30/24 01:12 Temperature Pulse Rate 86 Respiratory Rate 22 Blood Pressure 187/93 H 181/89 H Pulse Oximetry 93 Oxygen Delivery Method Oxygen Flow Rate 01/30/24 01:15 01/30/24 01:15 01/30/24 01:18 Temperature Pulse Rate 87 Respiratory Rate 23 Blood Pressure 179/92 H 176/86 H Pulse Oximetry 94 Oxygen Delivery Method Oxygen Flow Rate 01/30/24 01:18 01/30/24 01:21 01/30/24 01:21 Temperature Pulse Rate 92 H 87 Respiratory Rate 20 19 Blood Pressure 174/86 H Pulse Oximetry 93 93 Oxygen Delivery Method Oxygen Flow Rate 01/30/24 01:24 01/30/24 01:24 Temperature Pulse Rate 86 Respiratory Rate 19 Blood Pressure 171/87 H Pulse Oximetry 93 Oxygen Delivery Method Oxygen Flow Rate Medical Decision Making Lab Data 01/29/24 19:34 01/29/24 19:34 Labs: Lab Results 01/29/24 01/29/24 Range/Units 19:34 21:32 WBC 5.6 (4.5-11.0) X10^3/uL RBC 3.36 L (4.0-5.2) X10^6/uL Hgb 10.8 L (12.0-16.0) g/dL Hct 31.1 L (36-46) % MCV 92.6 (80-100) fL MCH 32.0 (26-34) PG MCHC 34.6 (30-36) % RDW 15.7 H (11.6-14.8) % Plt Count 167 (150-400) X10^3/uL Neut % (Auto) 91.1 H (50-75) % Lymph % (Auto) 6.4 L (25-40) % Hanson % (Auto) 2.0 L (3-14) % Eos % (Auto) 0.1 L (2-4) % Baso % (Auto) 0.4 (0-2) % Neut # (Auto) 5100 (9458-7156) /uL Lymph # (Auto) 400 L (8538-4311) /uL Hanson # (Auto) 100 (0-900) /uL Eos # (Auto) 0 (0-450) /uL Baso # (Auto) 0 (0-100) /uL Sodium 133 L (137-145) mmol/L Potassium 4.2 (3.4-5.1) mmol/L Chloride 97 L (98-107) mmol/L Carbon Dioxide 28 (22-32) mmol/L BUN 25 H (7-17) mg/dL Creatinine 5.18 H (0.52-1.04) mg/dL Estimated GFR 8 L (>60) mL/min BUN/Creatinine Ratio 4.8 L (6-22) Glucose 120 H (80-110) mg/dL Lactate 1.3 (0.7-2.1) mmol/L Calcium 8.9 (8.4-10.2) mg/dL Magnesium 1.9 (1.6-2.3) mg/dL Total Bilirubin 0.7 (0.2-1.3) mg/dL AST 26 (14-36) IU/L ALT 13 (<35) IU/L Alkaline Phosphatase 64 (38-126) U/L Troponin I 0.042 H 0.049 H (0.01-0.034) ng/mL Total Protein 6.8 (6.3-8.2) g/dL Albumin 4.5 (3.5-5.0) g/dL Globulin 2.3 (1.7-4.1) g/dL Albumin/Globulin Ratio 2.0 (1.0-2.8) Lipase 166 (23-300) U/L Procalcitonin 0.25 (<0.5) ng/mL MDM Narrative Medical decision making narrative: CC: Neck pain, headache, nausea, elevated blood pressure Complicating co-morbidities: Dialysis patient, dialyzes Saturday, did dialyze yesterday. Data collected from: patient Social determinants of health that may influence the patients condition: Medical records reviewed: Notes from [facility] with hospitalization December 02 through the of this year reviewed, admitted for acute anemia transfuse 2 units. The anemia was felt to be secondary to Goodpasture syndrome and she is noted to have pancytopenia presumably secondary to cyclophosphamide Differential considered: Hypertensive emergency, press syndrome, stroke, sepsis Exam documented above, pertinent findings include: Significant confusion, global weakness, lungs are clear belly is soft Lab Test results independently reviewed as above. Pertinent findings: CBC shows a white count of 5.6, H&H of 10.8 and 31.1. Comparison H&H from 1 month ago at [facility] hemoglobin 8.3 hematocrit 25.8. Platelets at 167 Chemistries are notable for creatinine at 5.2 with a potassium at 4.2. Troponin is slightly elevated at 0.042. Comparison December 02 troponin was undetectable Repeat troponin is 0.049 Independently reviewed EKG: EKG shows sinus rhythm at a rate of 78. Nonspecific STT wave changes without acute ischemia appreciated Imaging studies independently reviewed: CT scan of the head shows no acute intracranial pathology Consultations: Multiple attempts for transfer. No bed availability at [facility]. Waiting to talk to physicians at [facility]. 145am Discussed with Dr Gonzalez, data designer at [facility]. He will accept the patient. Treatments: Nicardipine drip, oral amlodipine, oral metoprolol Re-evaluations: 120am patient is currently on 1.5 milligrams/hour of nicardipine after receiving 5 mg of oral amlodipine and 25 mg of metoprolol tartrate. When turned up her pressures easily drop below 160 and when turned off completely she is consistently above 180. Headache is somewhat improved. Re-evaluated prior to discharge. Patient remains confused does not remember are earlier interactions this evening. Worried about dialysis. Still complaining of slight headache. Still requiring oxygen currently at 3 L and 93%. She does not require oxygen at home. Is not complaining of chest pain or palpitations. Understands need for transfer to [facility] for more intensive treatment. Discussion: 73-year-old woman with a history of hypertension, dialysis patient who did dialyze yesterday, presents with headache, neck pain and dyspnea. Initial blood pressures were in the 220/110 range. Initial troponin was slightly elevated. No acute EKG changes. She was started on a nicardipine drip with headache resolving once her blood pressure was below 180. Goal currently is in the 160-180 systolic range. No evidence of acute stroke, no STEMI appreciated on EKG dyspnea is also improved with blood pressure lower. Chest x-ray does not suggest significant volume overload/congestive heart failure. Believe patient needs ICU care for management of her acute hypertensive crisis, will need dialysis within the next day or 2. Potassium is currently at 4.2 creatinine 5.18 and BUN of 25. We will need to trend the elevated troponins to see if this is truly in NSTEMI or simply hypertensive related elevation. Currently waiting to discuss care with data designer at [facility] where they said they have an ICU bed available. Discharge Plan Departure Patient Disposition: [facility] Clinical Impression: Hypertensive crisis, Acute non-ST elevation myocardial infarction (NSTEMI), Chronic kidney disease requiring chronic dialysis Prescriptions: No Action fluticasone propion-salmeterol [Advair Diskus] 100-50 mcg/dose Blister With Device 1 inh INHALATION BID atenolol 50 mg PO DAILY atorvastatin 80 mg PO DAILY hydroxyzine HCl 10 mg PO DAILY levothyroxine 75 mcg PO DAILY lisinopril 10 mg PO DAILY quetiapine 25 mg PO BEDTIME aspirin 81 mg Tablet 81 mg PO DAILY Referrals: Miscellaneous,Doctor, [Primary Care Provider] -
[2024-01-29 20:15] LABS: Procalcitonin 0.25 ng/mL (<0.5)
[2024-01-29] MEDS: NICARDIPINE 25 MG in SODIUM CHLORIDE 0.9% 240 ML 50 MG IV (20:30)
--- NOTE | 2024-01-29 21:24 | DI.RAD.S_ITS ---
PROCEDURE: XR CHEST 1V INDICATIONS: dyspnea TECHNIQUE: One view of the chest was acquired. COMPARISON: [facility], CR, XR CHEST 1 VIEW, 12/03/2023, 12:40. FINDINGS: Surgical changes and devices: Right dual lumen central venous line with the catheter tip projecting near the cavoatrial junction. Lungs and pleura: Lungs are clear. Suspect small bilateral pleural effusions. No pneumothorax. Mediastinum: Mediastinal contours appear similar. Patient is rotated. Heart size appears unchanged. Bones and chest wall: No suspicious bony lesions. Overlying soft tissues appear unremarkable. IMPRESSION: Patient is rotated. Suspect small bilateral pleural effusions. Dictated by: Mk Frances M.D. on 01/29/2024 at 22:42 Approved by: Mk Frances M.D. on 01/29/2024 at 22:44
[2024-01-29] MEDS: AMLODIPINE 5 MG TABLET PO (21:41)
[2024-01-29] MEDS: METOPROLOL IR 25 MG TABLET PO (21:41)
[2024-01-29 22:11] LABS: Troponin I 0.049 ng/mL (0.01-0.034)
--- NOTE | 2024-01-29 22:15 | PC.NURSE ---
2120 I contacted [facility] and [facility] to inquire for an ICU bed, they were full and we placed this patient on the waitlist. [facility]/[place] and are too full and recommended we call back in a few hours to inquire for a bed.
[2024-01-30] VITALS (34 sets, daily range): BP systolic 163–193; BP diastolic 82–101; PULSE 74–92; RESP 11–24; O2SAT 91–96
[2024-01-30] MEDS: ACETAMINOPHEN 325 MG TABLET 975 MG PO (00:07)
--- NOTE | 2024-01-30 02:05 | PC.NURSE ---
Report called to CAROLA Campbell at [facility] ICU. Patient to remain on Nicardipine 1.5mg/hr to maintain systolic BP 160-180. Patient's sister Nadeem called with update. Patient denies any pain at the moment
== END 2024-01-30 02:36 | disposition short-term general hospital (02) ==
PROVIDERS: Emergency Provider Emergency Medicine
DX: I21.4 Non-ST elevation (NSTEMI) myocardial infarction (principal); I16.9 Hypertensive crisis, unspecified; N18.6 End stage renal disease; Z99.2 Dependence on renal dialysis; R06.00 Dyspnea, unspecified; Z79.899 Other long term (current) drug therapy
CPT/HCPCS: 36415; 70450; 71045; 80053; 83605; 83690; 83735; 84145; 84484; 85025; 87040; 93005; 93010; 96365; 96366; 96375; 99285; J2405

== ENCOUNTER 2024-02-09 17:04 | Emergency (ER) | payer OTHER, MEDICAID, SELFPAY ==
[2024-02-09] VITALS (12 sets, daily range): BP systolic 164–229; BP diastolic 77–108; PULSE 57–86; RESP 14–18; TEMP 37.2; O2SAT 90–94; BMI 27.1
--- NOTE | 2024-02-09 17:42 | ED_ITS ---
HPI - Back Pain/Injury <Tesfaye Painter QUALITY [employer]OL [employer] TECHNICIAN - Last Filed: 02/09/24 19:29> General Chief Complaint: Back Pain/Injury Stated Complaint: Back Pain Time Seen by Provider: 02/09/24 17:41 Source: patient and EMS History of Present Illness HPI Narrative: 73-year-old female, current dialysis patient, was brought to the emergency department via EMS for right-sided low back pain since last night. Patient reports that she has had a difficult 4 days in which her blood pressure has been fluctuating and has been to dialysis 3 times this week on Saturday, and Saturday. When patient got home last night, she slid open her front door and felt pain in her right lower back. Patient states that she had to sleep on the couch because she could not find a comfortable position, and was in pain throughout the night. Patient contacted the emergency doctor who recommended she take her Robaxin and Tylenol and then again in 4 hours if symptoms have not improved. Patient reports that she has been taking prednisone daily. Patient states that she was sitting on the couch and partially slid off, when she was unable to get back on the couch, and so slid down to the floor. From this position she contacted EMS who arrived and brought her to the emergency department. Patient denies any loss of control of bowel or bladder or numbness and tingling of lower extremities. Patient denies experiencing this type of pain in the past and does not recall ever having any x-rays. Patient was giving pain medication via EMS and is now moderately comfortable. Patient started on losartan yesterday, in addition to her other blood pressure medications. Related Data Home Medications Medication Instructions Recorded Confirmed atorvastatin 40 mg PO BEDTIME 02/20/21 02/10/24 fluticasone 100 mcg-salmeterol 50 1 inh inhalation BID 02/20/21 02/09/24 mcg/dose blistr powdr for inhalation (Advair Diskus) hydroxyzine HCl 25 mg PO PRN PRN Anxiety 02/20/21 02/10/24 levothyroxine 75 mcg PO DAILY 02/20/21 02/09/24 quetiapine 50 mg PO BEDTIME 02/20/21 02/10/24 alendronate 70 mg tablet 70 mg PO WEEKLY 02/10/24 02/10/24 calcium acetate 667 mg tablet 667 mg PO TID 02/10/24 02/10/24 carvedilol 12.5 mg tablet 12.5 mg PO BID 02/10/24 02/10/24 cholecalciferol (vitamin D3) 50 50 mcg PO DAILY 02/10/24 02/10/24 mcg (2,000 unit) capsule (Vitamin D3) methocarbamol 500 mg tablet 500 mg PO 4XD PRN Pain, Moderate 02/10/24 02/10/24 prednisone 20 mg tablet 20 mg PO DAILY 02/10/24 02/10/24 sulfamethoxazole 400 1 tab PO DAILY 02/10/24 02/10/24 mg-trimethoprim 80 mg tablet Allergies Allergy/AdvReac Type Severity Reaction Status Date / Time amoxicillin Allergy Verified 01/29/24 19:25 Review of Systems <RUBI Llamas - Last Filed: 02/09/24 19:29> Review of Systems Narrative: Narrative: See HPI. GENERAL: Denies chills, fatigue, fever, sweats. HEENT: Denies sinus pain, ear pain, sore throat, difficulty swallowing, dizziness. RESPIRATORY: Denies dyspnea, cough, wheezing, sputum. CARDIOVASCULAR: Denies chest pain, palpitations, edema. GASTROINTESTINAL: Denies nausea, vomiting, abdominal pain, diarrhea, constipation. : Denies dysuria, frequency, incontinence, hematuria, urinary retention, flank pain, loss of control of bowel or bladder.. MSK: Denies weakness. Endorses right-sided low back pain. SKIN: Denies rash, skin lesions, or pruritis. NEUROLOGIC: Denies weakness, dizziness, headache, numbness or tingling lower extremities, confusion. PSYCHIATRIC: No concerning psychosocial issues. Patient History <RUBI Llamas - Last Filed: 02/09/24 19:29> Medical History Hemodialysis patient Goodpasture syndrome Hypothyroid Insomnia HTN (hypertension) Asthma Anxiety Social History household members: none Smoking Status: Current every day smoker alcohol intake: current Smoking Status: Current every day smoker alcohol intake frequency: 3 or more drinks per day Substance Use Type: does not use Exam <RUBI Llamas - Last Filed: 02/09/24 19:29> Narrative Exam Narrative: Exam Narrative: GENERAL: This is a well-nourished, well-developed patient, in no acute distress. HEAD: Atraumatic. Normocephalic. EYES: Pupils equal round and reactive. Extraocular motions intact. No scleral icterus, injection or drainage. CARDIOVASCULAR: Regular rate and rhythm without murmurs, peripheral pulses intact, cap refill <2 sec. RESPIRATORY: Breath sounds equal and clear bilaterally. No wheezes, rales, or rhonchi. No cough. No increased respiratory effort. No accessory muscle use. MSK: Moves all extremities. Normal range of motion, no clubbing or edema. Neurovascularly intact. NEURO: A&O x 3. SKIN: Warm, dry, no rashes or lesions noted. BACK devulcanizer tender but free of any obvious external abnormalities. There is no asymmetry, swelling, bruising or wound. There is no paraspinal tenderness or CVA tenderness. SI joints nontender. No pain over spinous processes. No symptoms of cauda equina such as saddle anesthesia. Sensation is grossly intact. ROM is limited due to pain. SLE is negative bilaterally. Reflexes 2-3 at patella and achilles bilaterally. Resistive strengths are within normal limits Initial Vital Signs Initial Vital Signs: Vital Signs Temperature 99.0 F 02/09/24 17:14 Pulse Rate 79 02/09/24 17:14 Respiratory Rate 18 02/09/24 17:14 Blood Pressure 218/98 H 02/09/24 17:14 Pulse Oximetry 93 02/09/24 17:14 Oxygen Delivery Method Room Air 02/09/24 17:14 Reviewed <Carolyn Glass DO - Last Filed: 02/13/24 07:59> Initial Vital Signs Initial Vital Signs: Vital Signs Temperature 99.0 F 02/09/24 17:14 Pulse Rate 79 02/09/24 17:14 Respiratory Rate 18 02/09/24 17:14 Blood Pressure 218/98 H 02/09/24 17:14 Pulse Oximetry 93 02/09/24 17:14 Oxygen Delivery Method Room Air 02/09/24 17:14 <Mannie Lomax MD - Last Filed: 02/10/24 19:55> Initial Vital Signs Initial Vital Signs: Vital Signs Temperature 99.0 F 02/09/24 17:14 Pulse Rate 79 02/09/24 17:14 Respiratory Rate 18 02/09/24 17:14 Blood Pressure 218/98 H 02/09/24 17:14 Pulse Oximetry 93 02/09/24 17:14 Oxygen Delivery Method Room Air 02/09/24 17:14 Course <RUBI Llamas - Last Filed: 02/09/24 19:29> Orders Ordered: Discontinued Medications Acetaminophen (Acetaminophen 325 Mg Tablet) 975 mg PO NOW ONE Stop: 02/09/24 20:56 Last Admin: 02/09/24 21:07 Dose: 975 mg Documented By: ROBINSON Albuterol (Albuterol 2.5 Mg/3 Ml Neb (Adult)) 2.5 mg INH NOW ONE Stop: 02/10/24 11:11 Last Admin: 02/10/24 11:24 Dose: 2.5 mg Documented By: WANDA Atorvastatin Calcium (Atorvastatin 20 Mg Tablet) 80 mg PO NOW ONE Stop: 02/09/24 20:33 Last Admin: 02/09/24 20:44 Dose: 80 mg Documented By: LESLIE Carvedilol (Carvedilol 12.5 Mg Tablet) 12.5 mg PO NOW ONE Stop: 02/09/24 20:33 Last Admin: 02/09/24 20:45 Dose: 12.5 mg Documented By: LESLIE Carvedilol (Carvedilol 12.5 Mg Tablet) 12.5 mg PO NOW ONE Stop: 02/10/24 12:26 Last Admin: 02/10/24 12:46 Dose: 12.5 mg Documented By: RODNEY Hydralazine HCl (Hydralazine 20 Mg/Ml Vial) 5 mg IV NOW ONE Stop: 02/10/24 12:47 Last Admin: 02/10/24 13:41 Dose: 5 mg Documented By: RODNEY Hydralazine HCl (Hydralazine 20 Mg/Ml Vial) 5 mg IV NOW ONE Stop: 02/10/24 16:07 Last Admin: 02/10/24 16:13 Dose: 5 mg Documented By: RODNEY Hydroxyzine HCl (Hydroxyzine Hcl 25 Mg Tablet) 25 mg PO NOW ONE Stop: 02/09/24 20:32 Last Admin: 02/09/24 20:44 Dose: 25 mg Documented By: LESLIE Labetalol HCl (Labetalol 20 Mg/4 Ml Syringe) 10 mg IV NOW ONE Stop: 02/10/24 17:57 Last Admin: 02/10/24 18:19 Dose: 10 mg Documented By: Labetalol HCl (Labetalol 20 Mg/4 Ml Syringe) 20 mg IV NOW ONE Stop: 02/10/24 19:11 Last Admin: 02/10/24 19:22 Dose: 20 mg Documented By: Morphine Sulfate (Morphine 2 Mg/Ml Inj) 2 mg IV NOW ONE Stop: 02/09/24 19:17 Last Admin: 02/09/24 19:53 Dose: 2 mg Documented By: ROBINSON Oxycodone/Acetaminophen (Oxycodone/Acetaminophen 5/325 Tablet) 2 tab PO Q6HR PRN PRN Reason: Pain, Severe (7-10) Last Admin: 02/10/24 19:22 Dose: 2 tab Documented By: Admin: 02/10/24 11:23 Dose: 2 tab Documented By: Admin: 02/10/24 05:08 Dose: 2 tab Documented By: Prednisone (Prednisone 20 Mg Tablet) 20 mg PO NOW ONE Stop: 02/10/24 12:27 Last Admin: 02/10/24 13:43 Dose: 20 mg Documented By: RODNEY Quetiapine Fumarate (Quetiapine 25 Mg Tablet) 25 mg PO NOW ONE Stop: 02/09/24 20:33 Last Admin: 02/09/24 20:45 Dose: 25 mg Documented By: LESLIE Vitamin D (Cholecalciferol (Vitamin D3) 1,000 Unit Tablet) 2,000 unit PO DAILY [facility] Last Admin: 02/10/24 12:47 Dose: 2,000 unit Documented By: RODNEY Vital Signs Vital signs: Vital Signs - 8 hr 02/10/24 12:00 02/10/24 12:00 02/10/24 12:30 Temperature Pulse Rate 78 59 L Respiratory Rate Blood Pressure 212/111 H Pulse Oximetry 95 93 Oxygen Delivery Method Oxygen Flow Rate 2 02/10/24 12:46 02/10/24 13:00 02/10/24 13:00 Temperature Pulse Rate 73 78 Respiratory Rate Blood Pressure 212/111 H 239/111 H Pulse Oximetry 93 Oxygen Delivery Method Oxygen Flow Rate 02/10/24 13:30 02/10/24 13:41 02/10/24 14:00 Temperature Pulse Rate 62 75 61 Respiratory Rate Blood Pressure 239/111 H Pulse Oximetry 92 95 Oxygen Delivery Method Oxygen Flow Rate 02/10/24 14:00 02/10/24 14:00 02/10/24 14:30 Temperature Pulse Rate 61 74 Respiratory Rate Blood Pressure 191/102 H 191/102 H Pulse Oximetry 95 Oxygen Delivery Method Oxygen Flow Rate 02/10/24 14:30 02/10/24 15:00 02/10/24 15:00 Temperature Pulse Rate 61 Respiratory Rate Blood Pressure 205/104 H 214/98 H Pulse Oximetry 95 Oxygen Delivery Method Oxygen Flow Rate 02/10/24 15:30 02/10/24 16:00 02/10/24 16:00 Temperature Pulse Rate 76 79 Respiratory Rate Blood Pressure 231/109 H Pulse Oximetry 96 95 Oxygen Delivery Method Oxygen Flow Rate 02/10/24 16:13 02/10/24 16:30 02/10/24 16:30 Temperature 98.3 F Pulse Rate 82 78 Respiratory Rate 24 Blood Pressure 231/109 H 215/106 H Pulse Oximetry 95 Oxygen Delivery Method Nasal Cannula Oxygen Flow Rate 1 02/10/24 16:39 02/10/24 17:00 02/10/24 17:00 Temperature Pulse Rate 70 92 H Respiratory Rate Blood Pressure 215/106 H 226/112 H Pulse Oximetry 95 Oxygen Delivery Method Oxygen Flow Rate 02/10/24 17:30 02/10/24 17:30 02/10/24 18:00 Temperature Pulse Rate 91 H 79 Respiratory Rate Blood Pressure 213/100 H Pulse Oximetry 95 94 Oxygen Delivery Method Oxygen Flow Rate 02/10/24 18:00 02/10/24 18:19 02/10/24 18:30 Temperature Pulse Rate 77 65 Respiratory Rate Blood Pressure 209/102 H 209/102 H Pulse Oximetry 95 Oxygen Delivery Method Oxygen Flow Rate 02/10/24 18:30 02/10/24 18:33 02/10/24 18:33 Temperature Pulse Rate 77 Respiratory Rate Blood Pressure 214/102 H 230/106 H Pulse Oximetry 95 Oxygen Delivery Method Oxygen Flow Rate 02/10/24 19:00 02/10/24 19:00 02/10/24 19:02 Temperature Pulse Rate 70 79 Respiratory Rate Blood Pressure 204/113 H Pulse Oximetry 95 95 Oxygen Delivery Method Oxygen Flow Rate 02/10/24 19:02 02/10/24 19:22 02/10/24 19:23 Temperature Pulse Rate 73 72 Respiratory Rate Blood Pressure 216/119 H 216/119 H 219/116 H Pulse Oximetry Oxygen Delivery Method Oxygen Flow Rate 02/10/24 19:30 02/10/24 19:34 02/10/24 19:34 Temperature Pulse Rate 72 74 Respiratory Rate Blood Pressure 251/113 H Pulse Oximetry 95 96 Oxygen Delivery Method Oxygen Flow Rate 02/10/24 19:40 02/10/24 19:40 Temperature Pulse Rate 73 Respiratory Rate Blood Pressure 195/94 H Pulse Oximetry 94 Oxygen Delivery Method Oxygen Flow Rate <Carolyn Glass, - Last Filed: 02/13/24 07:59> Orders Ordered: Discontinued Medications Acetaminophen (Acetaminophen 325 Mg Tablet) 975 mg PO NOW ONE Stop: 02/09/24 20:56 Last Admin: 02/09/24 21:07 Dose: 975 mg Documented By: ROBINSON Albuterol (Albuterol 2.5 Mg/3 Ml Neb (Adult)) 2.5 mg INH NOW ONE Stop: 02/10/24 11:11 Last Admin: 02/10/24 11:24 Dose: 2.5 mg Documented By: WANDA Atorvastatin Calcium (Atorvastatin 20 Mg Tablet) 80 mg PO NOW ONE Stop: 02/09/24 20:33 Last Admin: 02/09/24 20:44 Dose: 80 mg Documented By: LESLIE Carvedilol (Carvedilol 12.5 Mg Tablet) 12.5 mg PO NOW ONE Stop: 02/09/24 20:33 Last Admin: 02/09/24 20:45 Dose: 12.5 mg Documented By: LESLIE Carvedilol (Carvedilol 12.5 Mg Tablet) 12.5 mg PO NOW ONE Stop: 02/10/24 12:26 Last Admin: 02/10/24 12:46 Dose: 12.5 mg Documented By: RODNEY Hydralazine HCl (Hydralazine 20 Mg/Ml Vial) 5 mg IV NOW ONE Stop: 02/10/24 12:47 Last Admin: 02/10/24 13:41 Dose: 5 mg Documented By: RODNEY Hydralazine HCl (Hydralazine 20 Mg/Ml Vial) 5 mg IV NOW ONE Stop: 02/10/24 16:07 Last Admin: 02/10/24 16:13 Dose: 5 mg Documented By: RODNEY Hydroxyzine HCl (Hydroxyzine Hcl 25 Mg Tablet) 25 mg PO NOW ONE Stop: 02/09/24 20:32 Last Admin: 02/09/24 20:44 Dose: 25 mg Documented By: LESLIE Labetalol HCl (Labetalol 20 Mg/4 Ml Syringe) 10 mg IV NOW ONE Stop: 02/10/24 17:57 Last Admin: 02/10/24 18:19 Dose: 10 mg Documented By: NOEMY Labetalol HCl (Labetalol 20 Mg/4 Ml Syringe) 20 mg IV NOW ONE Stop: 02/10/24 19:11 Last Admin: 02/10/24 19:22 Dose: 20 mg Documented By: Morphine Sulfate (Morphine 2 Mg/Ml Inj) 2 mg IV NOW ONE Stop: 02/09/24 19:17 Last Admin: 02/09/24 19:53 Dose: 2 mg Documented By: ROBINSON Oxycodone/Acetaminophen (Oxycodone/Acetaminophen 5/325 Tablet) 2 tab PO Q6HR PRN PRN Reason: Pain, Severe (7-10) Last Admin: 02/10/24 19:22 Dose: 2 tab Documented By: Admin: 02/10/24 11:23 Dose: 2 tab Documented By: Admin: 02/10/24 05:08 Dose: 2 tab Documented By: Prednisone (Prednisone 20 Mg Tablet) 20 mg PO NOW ONE Stop: 02/10/24 12:27 Last Admin: 02/10/24 13:43 Dose: 20 mg Documented By: RODNEY Quetiapine Fumarate (Quetiapine 25 Mg Tablet) 25 mg PO NOW ONE Stop: 02/09/24 20:33 Last Admin: 02/09/24 20:45 Dose: 25 mg Documented By: LESLIE Vitamin D (Cholecalciferol (Vitamin D3) 1,000 Unit Tablet) 2,000 unit PO DAILY [facility] Last Admin: 02/10/24 12:47 Dose: 2,000 unit Documented By: RODNEY Vital Signs Vital signs: Vital Signs - 8 hr 02/10/24 12:00 02/10/24 12:00 02/10/24 12:30 Temperature Pulse Rate 78 59 L Respiratory Rate Blood Pressure 212/111 H Pulse Oximetry 95 93 Oxygen Delivery Method Oxygen Flow Rate 2 02/10/24 12:46 02/10/24 13:00 02/10/24 13:00 Temperature Pulse Rate 73 78 Respiratory Rate Blood Pressure 212/111 H 239/111 H Pulse Oximetry 93 Oxygen Delivery Method Oxygen Flow Rate 02/10/24 13:30 02/10/24 13:41 02/10/24 14:00 Temperature Pulse Rate 62 75 61 Respiratory Rate Blood Pressure 239/111 H Pulse Oximetry 92 95 Oxygen Delivery Method Oxygen Flow Rate 02/10/24 14:00 02/10/24 14:00 02/10/24 14:30 Temperature Pulse Rate 61 74 Respiratory Rate Blood Pressure 191/102 H 191/102 H Pulse Oximetry 95 Oxygen Delivery Method Oxygen Flow Rate 02/10/24 14:30 02/10/24 15:00 02/10/24 15:00 Temperature Pulse Rate 61 Respiratory Rate Blood Pressure 205/104 H 214/98 H Pulse Oximetry 95 Oxygen Delivery Method Oxygen Flow Rate 02/10/24 15:30 02/10/24 16:00 02/10/24 16:00 Temperature Pulse Rate 76 79 Respiratory Rate Blood Pressure 231/109 H Pulse Oximetry 96 95 Oxygen Delivery Method Oxygen Flow Rate 02/10/24 16:13 02/10/24 16:30 02/10/24 16:30 Temperature 98.3 F Pulse Rate 82 78 Respiratory Rate 24 Blood Pressure 231/109 H 215/106 H Pulse Oximetry 95 Oxygen Delivery Method Nasal Cannula Oxygen Flow Rate 1 02/10/24 16:39 02/10/24 17:00 02/10/24 17:00 Temperature Pulse Rate 70 92 H Respiratory Rate Blood Pressure 215/106 H 226/112 H Pulse Oximetry 95 Oxygen Delivery Method Oxygen Flow Rate 02/10/24 17:30 02/10/24 17:30 02/10/24 18:00 Temperature Pulse Rate 91 H 79 Respiratory Rate Blood Pressure 213/100 H Pulse Oximetry 95 94 Oxygen Delivery Method Oxygen Flow Rate 02/10/24 18:00 02/10/24 18:19 02/10/24 18:30 Temperature Pulse Rate 77 65 Respiratory Rate Blood Pressure 209/102 H 209/102 H Pulse Oximetry 95 Oxygen Delivery Method Oxygen Flow Rate 02/10/24 18:30 02/10/24 18:33 02/10/24 18:33 Temperature Pulse Rate 77 Respiratory Rate Blood Pressure 214/102 H 230/106 H Pulse Oximetry 95 Oxygen Delivery Method Oxygen Flow Rate 02/10/24 19:00 02/10/24 19:00 02/10/24 19:02 Temperature Pulse Rate 70 79 Respiratory Rate Blood Pressure 204/113 H Pulse Oximetry 95 95 Oxygen Delivery Method Oxygen Flow Rate 02/10/24 19:02 02/10/24 19:22 02/10/24 19:23 Temperature Pulse Rate 73 72 Respiratory Rate Blood Pressure 216/119 H 216/119 H 219/116 H Pulse Oximetry Oxygen Delivery Method Oxygen Flow Rate 02/10/24 19:30 02/10/24 19:34 02/10/24 19:34 Temperature Pulse Rate 72 74 Respiratory Rate Blood Pressure 251/113 H Pulse Oximetry 95 96 Oxygen Delivery Method Oxygen Flow Rate 02/10/24 19:40 02/10/24 19:40 Temperature Pulse Rate 73 Respiratory Rate Blood Pressure 195/94 H Pulse Oximetry 94 Oxygen Delivery Method Oxygen Flow Rate <Mannie Lomax MD - Last Filed: 02/10/24 19:55> Orders Ordered: Discontinued Medications Acetaminophen (Acetaminophen 325 Mg Tablet) 975 mg PO NOW ONE Stop: 02/09/24 20:56 Last Admin: 02/09/24 21:07 Dose: 975 mg Documented By: ROBINSON Albuterol (Albuterol 2.5 Mg/3 Ml Neb (Adult)) 2.5 mg INH NOW ONE Stop: 02/10/24 11:11 Last Admin: 02/10/24 11:24 Dose: 2.5 mg Documented By: WANDA Atorvastatin Calcium (Atorvastatin 20 Mg Tablet) 80 mg PO NOW ONE Stop: 02/09/24 20:33 Last Admin: 02/09/24 20:44 Dose: 80 mg Documented By: LESLIE Carvedilol (Carvedilol 12.5 Mg Tablet) 12.5 mg PO NOW ONE Stop: 02/09/24 20:33 Last Admin: 02/09/24 20:45 Dose: 12.5 mg Documented By: LESLIE Carvedilol (Carvedilol 12.5 Mg Tablet) 12.5 mg PO NOW ONE Stop: 02/10/24 12:26 Last Admin: 02/10/24 12:46 Dose: 12.5 mg Documented By: RODNEY Hydralazine HCl (Hydralazine 20 Mg/Ml Vial) 5 mg IV NOW ONE Stop: 02/10/24 12:47 Last Admin: 02/10/24 13:41 Dose: 5 mg Documented By: RODNEY Hydralazine HCl (Hydralazine 20 Mg/Ml Vial) 5 mg IV NOW ONE Stop: 02/10/24 16:07 Last Admin: 02/10/24 16:13 Dose: 5 mg Documented By: RODNEY Hydroxyzine HCl (Hydroxyzine Hcl 25 Mg Tablet) 25 mg PO NOW ONE Stop: 02/09/24 20:32 Last Admin: 02/09/24 20:44 Dose: 25 mg Documented By: LESLIE Labetalol HCl (Labetalol 20 Mg/4 Ml Syringe) 10 mg IV NOW ONE Stop: 02/10/24 17:57 Last Admin: 02/10/24 18:19 Dose: 10 mg Documented By: Labetalol HCl (Labetalol 20 Mg/4 Ml Syringe) 20 mg IV NOW ONE Stop: 02/10/24 19:11 Last Admin: 02/10/24 19:22 Dose: 20 mg Documented By: Morphine Sulfate (Morphine 2 Mg/Ml Inj) 2 mg IV NOW ONE Stop: 02/09/24 19:17 Last Admin: 02/09/24 19:53 Dose: 2 mg Documented By: ROBINSON Oxycodone/Acetaminophen (Oxycodone/Acetaminophen 5/325 Tablet) 2 tab PO Q6HR PRN PRN Reason: Pain, Severe (7-10) Last Admin: 02/10/24 19:22 Dose: 2 tab Documented By: Admin: 02/10/24 11:23 Dose: 2 tab Documented By: Admin: 02/10/24 05:08 Dose: 2 tab Documented By: Prednisone (Prednisone 20 Mg Tablet) 20 mg PO NOW ONE Stop: 02/10/24 12:27 Last Admin: 02/10/24 13:43 Dose: 20 mg Documented By: RODNEY Quetiapine Fumarate (Quetiapine 25 Mg Tablet) 25 mg PO NOW ONE Stop: 02/09/24 20:33 Last Admin: 02/09/24 20:45 Dose: 25 mg Documented By: LESLIE Vitamin D (Cholecalciferol (Vitamin D3) 1,000 Unit Tablet) 2,000 unit PO DAILY [facility] Last Admin: 02/10/24 12:47 Dose: 2,000 unit Documented By: RODNEY Vital Signs Vital signs: Vital Signs - 8 hr 02/10/24 12:00 02/10/24 12:00 02/10/24 12:30 Temperature Pulse Rate 78 59 L Respiratory Rate Blood Pressure 212/111 H Pulse Oximetry 95 93 Oxygen Delivery Method Oxygen Flow Rate 2 02/10/24 12:46 02/10/24 13:00 02/10/24 13:00 Temperature Pulse Rate 73 78 Respiratory Rate Blood Pressure 212/111 H 239/111 H Pulse Oximetry 93 Oxygen Delivery Method Oxygen Flow Rate 02/10/24 13:30 02/10/24 13:41 02/10/24 14:00 Temperature Pulse Rate 62 75 61 Respiratory Rate Blood Pressure 239/111 H Pulse Oximetry 92 95 Oxygen Delivery Method Oxygen Flow Rate 02/10/24 14:00 02/10/24 14:00 02/10/24 14:30 Temperature Pulse Rate 61 74 Respiratory Rate Blood Pressure 191/102 H 191/102 H Pulse Oximetry 95 Oxygen Delivery Method Oxygen Flow Rate 02/10/24 14:30 02/10/24 15:00 02/10/24 15:00 Temperature Pulse Rate 61 Respiratory Rate Blood Pressure 205/104 H 214/98 H Pulse Oximetry 95 Oxygen Delivery Method Oxygen Flow Rate 02/10/24 15:30 02/10/24 16:00 02/10/24 16:00 Temperature Pulse Rate 76 79 Respiratory Rate Blood Pressure 231/109 H Pulse Oximetry 96 95 Oxygen Delivery Method Oxygen Flow Rate 02/10/24 16:13 02/10/24 16:30 02/10/24 16:30 Temperature 98.3 F Pulse Rate 82 78 Respiratory Rate 24 Blood Pressure 231/109 H 215/106 H Pulse Oximetry 95 Oxygen Delivery Method Nasal Cannula Oxygen Flow Rate 1 02/10/24 16:39 02/10/24 17:00 02/10/24 17:00 Temperature Pulse Rate 70 92 H Respiratory Rate Blood Pressure 215/106 H 226/112 H Pulse Oximetry 95 Oxygen Delivery Method Oxygen Flow Rate 02/10/24 17:30 02/10/24 17:30 02/10/24 18:00 Temperature Pulse Rate 91 H 79 Respiratory Rate Blood Pressure 213/100 H Pulse Oximetry 95 94 Oxygen Delivery Method Oxygen Flow Rate 02/10/24 18:00 02/10/24 18:19 02/10/24 18:30 Temperature Pulse Rate 77 65 Respiratory Rate Blood Pressure 209/102 H 209/102 H Pulse Oximetry 95 Oxygen Delivery Method Oxygen Flow Rate 02/10/24 18:30 02/10/24 18:33 02/10/24 18:33 Temperature Pulse Rate 77 Respiratory Rate Blood Pressure 214/102 H 230/106 H Pulse Oximetry 95 Oxygen Delivery Method Oxygen Flow Rate 02/10/24 19:00 02/10/24 19:00 02/10/24 19:02 Temperature Pulse Rate 70 79 Respiratory Rate Blood Pressure 204/113 H Pulse Oximetry 95 95 Oxygen Delivery Method Oxygen Flow Rate 02/10/24 19:02 02/10/24 19:22 02/10/24 19:23 Temperature Pulse Rate 73 72 Respiratory Rate Blood Pressure 216/119 H 216/119 H 219/116 H Pulse Oximetry Oxygen Delivery Method Oxygen Flow Rate 02/10/24 19:30 02/10/24 19:34 02/10/24 19:34 Temperature Pulse Rate 72 74 Respiratory Rate Blood Pressure 251/113 H Pulse Oximetry 95 96 Oxygen Delivery Method Oxygen Flow Rate 02/10/24 19:40 02/10/24 19:40 Temperature Pulse Rate 73 Respiratory Rate Blood Pressure 195/94 H Pulse Oximetry 94 Oxygen Delivery Method Oxygen Flow Rate MDM - Back Pain/Injury <RUBI Llamas - Last Filed: 02/09/24 19:29> Differential Diagnosis Differential diagnosis: Likely lumbar radiculopathy and strain of lumbar region Lab Data 02/09/24 20:58 02/10/24 17:08 Labs: Lab Results 02/09/24 02/10/24 Range/Units 20:58 17:08 WBC 6.7 (4.5-11.0) X10^3/uL RBC 3.29 L (4.0-5.2) X10^6/uL Hgb 10.4 L (12.0-16.0) g/dL Hct 30.2 L (36-46) % MCV 91.8 (80-100) fL MCH 31.6 (26-34) PG MCHC 34.5 (30-36) % RDW 15.8 H (11.6-14.8) % Plt Count 149 L (150-400) X10^3/uL Neut % (Auto) 85.6 H (50-75) % Lymph % (Auto) 10.6 L (25-40) % [place] % (Auto) 3.4 (3-14) % Eos % (Auto) 0.0 L (2-4) % Baso % (Auto) 0.4 (0-2) % Neut # (Auto) 5700 (0410-9469) /uL Lymph # (Auto) 700 L (0278-0789) /uL [place] # (Auto) 200 (0-900) /uL Eos # (Auto) 0 (0-450) /uL Baso # (Auto) 0 (0-100) /uL PT 10.3 (9.4-12.5) SECONDS INR 0.9 (0.9-1.3) APTT 29 (25.1-36.5) SECONDS Sodium 135 L 134 L (137-145) mmol/L Potassium 3.9 4.1 (3.4-5.1) mmol/L Chloride 99 102 (98-107) mmol/L Carbon Dioxide 30 25 (22-32) mmol/L BUN 27 H 35 H (7-17) mg/dL Creatinine 5.32 H 6.23 H (0.52-1.04) mg/dL Estimated GFR 8 L 7 L (>60) mL/min BUN/Creatinine Ratio 5.1 L 5.6 L (6-22) Glucose 106 118 H (80-110) mg/dL Calcium 8.8 8.5 (8.4-10.2) mg/dL Magnesium 2.0 (1.6-2.3) mg/dL Total Bilirubin 0.9 1.2 (0.2-1.3) mg/dL AST 22 25 (14-36) IU/L ALT 12 11 (<35) IU/L Alkaline Phosphatase 59 61 (38-126) U/L Total Protein 5.9 L 6.0 L (6.3-8.2) g/dL Albumin 3.8 3.8 (3.5-5.0) g/dL Globulin 2.1 2.2 (1.7-4.1) g/dL Albumin/Globulin Ratio 1.8 1.7 (1.0-2.8) Imaging Data Extremity x-ray #1: Radiologist's Impression: [address] [address] XRay Report Signed Patient: Sheeba Hayes MR#: [id number] : 1950 Acct:[id number] Age/Sex: 73 / F Date of Service: 02/09/24 Loc: ED Accession Number: [id number] Procedure: XR lumbar spine 2-3V Ordering Provider: Tesfaye Painter PROCEDURE: XR LUMBAR SPINE 2-3V INDICATIONS: Low back pain TECHNIQUE: 3 views of the lumbar spine were acquired. COMPARISON: None. FINDINGS: Bones: 5 [id number] vertebrae are present. There is normal bony alignment there is age indeterminate anterior compression deformity of L5. No suspicious bony lesions. Mild multilevel degenerative changes of the visualized spine. Soft tissues: Overlying bowel gas pattern is normal. No suspicious soft tissue calcifications. Vascular calcifications are present. IMPRESSION: Age-indeterminate L5 compression deformity. Approved by: Kirsten Winter M.D.,Ph.D. on 02/09/2024 at 17:59 [facility] Narrative Medical decision making narrative: 73-year-old female with low back pain. Assessment was inconclusive and patient is neurovascularly intact. No signs of saddle anesthesia. Obtained a baseline lumbar series x-ray after placing patient on a gurney, per x-ray tech request. X-ray results reveal age indeterminate L5 compression deformity. Patient now complaining of head and neck pain secondary to being on the transfer board while in x-ray. Patient is concerned that she is not able to function at home on her own due to her pain level. Patient's daughter spoke with the ED RN and was concerned that she would not be able to take care of herself at home. Discussed case with Dr. Glass. 2 mg of morphine ordered for pain control. Patient will be transferred to the main ER for further evaluation as the ED fast track is closed. Consideration included that injury was non-traumatic, patient is not a IV drug user, no fever, neurovascular intact, no weakness, no signs of epidural abscess or saddle anesthesia <Carolyn Glass, - Last Filed: 02/13/24 07:59> Lab Data Labs: Lab Results 02/09/24 02/10/24 Range/Units 20:58 17:08 WBC 6.7 (4.5-11.0) X10^3/uL RBC 3.29 L (4.0-5.2) X10^6/uL Hgb 10.4 L (12.0-16.0) g/dL Hct 30.2 L (36-46) % MCV 91.8 (80-100) fL MCH 31.6 (26-34) PG MCHC 34.5 (30-36) % RDW 15.8 H (11.6-14.8) % Plt Count 149 L (150-400) X10^3/uL Neut % (Auto) 85.6 H (50-75) % Lymph % (Auto) 10.6 L (25-40) % [place] % (Auto) 3.4 (3-14) % Eos % (Auto) 0.0 L (2-4) % Baso % (Auto) 0.4 (0-2) % Neut # (Auto) 5700 (0158-1430) /uL Lymph # (Auto) 700 L (4611-6774) /uL [place] # (Auto) 200 (0-900) /uL Eos # (Auto) 0 (0-450) /uL Baso # (Auto) 0 (0-100) /uL PT 10.3 (9.4-12.5) SECONDS INR 0.9 (0.9-1.3) APTT 29 (25.1-36.5) SECONDS Sodium 135 L 134 L (137-145) mmol/L Potassium 3.9 4.1 (3.4-5.1) mmol/L Chloride 99 102 (98-107) mmol/L Carbon Dioxide 30 25 (22-32) mmol/L BUN 27 H 35 H (7-17) mg/dL Creatinine 5.32 H 6.23 H (0.52-1.04) mg/dL Estimated GFR 8 L 7 L (>60) mL/min BUN/Creatinine Ratio 5.1 L 5.6 L (6-22) Glucose 106 118 H (80-110) mg/dL Calcium 8.8 8.5 (8.4-10.2) mg/dL Magnesium 2.0 (1.6-2.3) mg/dL Total Bilirubin 0.9 1.2 (0.2-1.3) mg/dL AST 22 25 (14-36) IU/L ALT 12 11 (<35) IU/L Alkaline Phosphatase 59 61 (38-126) U/L Total Protein 5.9 L 6.0 L (6.3-8.2) g/dL Albumin 3.8 3.8 (3.5-5.0) g/dL Globulin 2.1 2.2 (1.7-4.1) g/dL Albumin/Globulin Ratio 1.8 1.7 (1.0-2.8) MDM Narrative Medical decision making narrative: 73-year-old female with low back pain. Assessment was inconclusive and patient is neurovascularly intact. No signs of saddle anesthesia. Obtained a baseline lumbar series x-ray after placing patient on a gurney, per x-ray tech request. X-ray results reveal age indeterminate L5 compression deformity. Patient now complaining of head and neck pain secondary to being on the transfer board while in x-ray. Patient is concerned that she is not able to function at home on her own due to her pain level. Patient's daughter spoke with the ED RN and was concerned that she would not be able to take care of herself at home. Discussed case with Dr. Glass. 2 mg of morphine ordered for pain control. Patient will be transferred to the main ER for further evaluation as the ED fast track is closed. Consideration included that injury was non-traumatic, patient is not a IV drug user, no fever, neurovascular intact, no weakness, no signs of epidural abscess or saddle anesthesia 02/09/2024 Dr. Glass: Patient signed out to myself. Patient was seen and evaluated independently by myself. She has had an acute on chronic flare of back pain, she is tenderness over her back but she actually has decent strength she can straight leg raise both legs without issue, no sensation changes no saddle anesthesia no red flag symptoms necessitating an MRI. She does have a history of dialysis, she states pain makes it quite difficult for her to ambulate or move. She was in rehab or extended care facility until December but states she was doing pretty well until her back pain flared up while opening closing the back door. Patient does note she has a Saturday dialysis patient she has not had any changes to her dialysis but did move from [facility] to [place] for the location and states it seems like her blood pressures has been higher the past month or so. She states she has been running a systolic of 190-200 fairly persistently. Patient had 2 mg of morphine IM which she states was helpful she was taking Robaxin and Tylenol at home. She also did a little bit of topical ointment to her back for pain. She is generally uncomfortable throughout her back. She denies any trauma or injuries or falls. She has been looking into having home health care, but states that she does not feel safe to return home tonight. Plan for labs, we will give some additional pain medication attempt ambulation trial and re-evaluate. Patient is hypertensive here but has not had her evening medications so these were ordered including her carvedilol. BARREL MAKER is to meet with the patient. <Mannie Lomax MD - Last Filed: 02/10/24 19:55> Lab Data Attestation: I reviewed the patient's lab results. Labs: Lab Results 02/09/24 02/10/24 Range/Units 20:58 17:08 WBC 6.7 (4.5-11.0) X10^3/uL RBC 3.29 L (4.0-5.2) X10^6/uL Hgb 10.4 L (12.0-16.0) g/dL Hct 30.2 L (36-46) % MCV 91.8 (80-100) fL MCH 31.6 (26-34) PG MCHC 34.5 (30-36) % RDW 15.8 H (11.6-14.8) % Plt Count 149 L (150-400) X10^3/uL Neut % (Auto) 85.6 H (50-75) % Lymph % (Auto) 10.6 L (25-40) % [place] % (Auto) 3.4 (3-14) % Eos % (Auto) 0.0 L (2-4) % Baso % (Auto) 0.4 (0-2) % Neut # (Auto) 5700 (8852-3966) /uL Lymph # (Auto) 700 L (1080-3793) /uL [place] # (Auto) 200 (0-900) /uL Eos # (Auto) 0 (0-450) /uL Baso # (Auto) 0 (0-100) /uL PT 10.3 (9.4-12.5) SECONDS INR 0.9 (0.9-1.3) APTT 29 (25.1-36.5) SECONDS Sodium 135 L 134 L (137-145) mmol/L Potassium 3.9 4.1 (3.4-5.1) mmol/L Chloride 99 102 (98-107) mmol/L Carbon Dioxide 30 25 (22-32) mmol/L BUN 27 H 35 H (7-17) mg/dL Creatinine 5.32 H 6.23 H (0.52-1.04) mg/dL Estimated GFR 8 L 7 L (>60) mL/min BUN/Creatinine Ratio 5.1 L 5.6 L (6-22) Glucose 106 118 H (80-110) mg/dL Calcium 8.8 8.5 (8.4-10.2) mg/dL Magnesium 2.0 (1.6-2.3) mg/dL Total Bilirubin 0.9 1.2 (0.2-1.3) mg/dL AST 22 25 (14-36) IU/L ALT 12 11 (<35) IU/L Alkaline Phosphatase 59 61 (38-126) U/L Total Protein 5.9 L 6.0 L (6.3-8.2) g/dL Albumin 3.8 3.8 (3.5-5.0) g/dL Globulin 2.1 2.2 (1.7-4.1) g/dL Albumin/Globulin Ratio 1.8 1.7 (1.0-2.8) Imaging Data CT Lumbar Spine: Radiologist's Impression: [place] [address] CT Scan Report Signed Patient: Sheeba Hayes MR#: [id number] : 1950 Acct:[id number] Age/Sex: 73 / F Date of Service: 02/10/24 Loc: ED Accession Number: [id number] Procedure: CT lumbar spine wo con Ordering Provider: Mannie Lomax MD PROCEDURE: CT LUMBAR SPINE WO CON INDICATIONS: low back pain, L5 fracture of indeterminate age TECHNIQUE: Noncontrast 3 mm thick sections acquired from the T12 level to the sacrum. Sagittal and coronal reformats were constructed. For radiation dose reduction, the following was used: automated exposure control. COMPARISON: [facility], CR, XR LUMBAR SPINE 2-3V, 02/09/2024, 18:18. FINDINGS: Image quality: Excellent. Bones: Diffusely decreased osseous mineralization. Mild levocurvature of the lumbar spine. Mild compression deformity of the superior endplate of L1. Rfss-[id number]-pqocbhyy compression deformity of the superior endplate of L5. Facet arthropathy of the lower lumbar spine. No pars interarticularis defects. No significant osseous central canal or neural foraminal stenosis. Soft tissues: No retroperitoneal masses or hematomas. Visualized aorta is normal in caliber. Atherosclerotic vascular calcifications. Small right pleural effusion with adjacent atelectasis versus consolidation. IMPRESSION: Mild compression deformity of the superior endplate of L1. Cyxy-ed-zqaebmnm compression deformity of the superior endplate of L5. No retropulsion. Mild degenerative changes of the spine. Small right pleural effusion. Dictated by: Hudson Morrow M.D. on 02/10/2024 at 9:02 Approved by: Hudson Morrow M.D. on 02/10/2024 at 9:05 [facility] Narrative Medical decision making narrative: 73-year-old female with low back pain. Assessment was inconclusive and patient is neurovascularly intact. No signs of saddle anesthesia. Obtained a baseline lumbar series x-ray after placing patient on a gurney, per x-ray tech request. X-ray results reveal age indeterminate L5 compression deformity. Patient now complaining of head and neck pain secondary to being on the transfer board while in x-ray. Patient is concerned that she is not able to function at home on her own due to her pain level. Patient's daughter spoke with the ED RN and was concerned that she would not be able to take care of herself at home. Discussed case with Dr. Glass. 2 mg of morphine ordered for pain control. Patient will be transferred to the main ER for further evaluation as the ED fast track is closed. Consideration included that injury was non-traumatic, patient is not a IV drug user, no fever, neurovascular intact, no weakness, no signs of epidural abscess or saddle anesthesia 02/09/2024 Dr. Glass: Patient signed out to myself. Patient was seen and evaluated independently by myself. She has had an acute on chronic flare of back pain, she is tenderness over her back but she actually has decent strength she can straight leg raise both legs without issue, no sensation changes no saddle anesthesia no red flag symptoms necessitating an MRI. She does have a history of dialysis, she states pain makes it quite difficult for her to ambulate or move. She was in rehab or extended care facility until December but states she was doing pretty well until her back pain flared up while opening closing the back door. Patient does note she has a Saturday dialysis patient she has not had any changes to her dialysis but did move from [facility] to [place] for the location and states it seems like her blood pressures has been higher the past month or so. She states she has been running a systolic of 190-200 fairly persistently. Patient had 2 mg of morphine IM which she states was helpful she was taking Robaxin and Tylenol at home. She also did a little bit of topical ointment to her back for pain. She is generally uncomfortable throughout her back. She denies any trauma or injuries or falls. She has been looking into having home health care, but states that she does not feel safe to return home tonight. Plan for labs, we will give some additional pain medication attempt ambulation trial and re-evaluate. Patient is hypertensive here but has not had her evening medications so these were ordered including her carvedilol. BARREL MAKER is to meet with the patient. Dami, 02/10/2024, 7:00 a.m., sign-out from Dr. Glass. 73-year-old female with history of end-stage renal disease, hemodialysis dependent, Saturday hemodialysis, had dialysis full session on Saturday as scheduled, recently hurt her back with pulling of the Slider door, persisting back pain, no blunt trauma or fall, creatinine 5, potassium level okay, patient has received analgesics, thus far had poor results overnight attempted walking. Patient apparently can lift legs well. Lumbar spine x-ray showed age indeterminate L5 fracture. Nursing reports she is unwilling/unable to ambulate, we will consult physical therapy. Assumed interim care. Lumbar x-ray showed indeterminate age L5 compression fracture, we will further delineate anatomy with CT lumbar spine imaging noncontrast, to see if there is any complication affecting disposition plan or physical therapy assessment approach CT lumbar spine shows mild compression deformity superior endplate of L1, mild to moderate compression deformity superior endplate L5. No retropulsion. Stable fractures, relayed to patient and physical therapy, who was doing their assessment of the room She had not perform well with physical therapy, possible [facility] placement. This would have to be coordinated with dialysis. 1345, update from social media marketing analyst, they are attempting to reach out to [facility], where apparently the patient has been at some point in the past, which could be used to help coordinate her hemodialysis sessions. 1600, blood pressure 230/100, IV hydralazine, she has been taking her antihypertensives losartan and carvedilol today, consider now transfer for hypertensive urgency, in context of likely need for m[facility] placement post discharge. We will look for dialysis capable facilities for transfer. 1744, case discussed with hospitalist Dr. Anthony Borges, last blood pressure noted to 13/104, despite 5 mg and 10 mg hydralazine, we will add IV labetalol. We discussed case and laboratory studies, accepts patient for transfer to [facility] Critical Care Time <Mannie Lomax MD - Last Filed: 02/10/24 19:55> Critical Care Time Critical Care Time: Yes Total Critical Care Time: 60 Attestation: The high probability of a clinically significant, sudden or life threatening deterioration of the [cardiopulmonary, renal] system(s) required my full and direct attention, intervention and personal management. The aggregate critical care time was [60] minutes. This time is in addition to time spent performing reported procedures but includes the following: [x] Data Review and interpretation [x] Patient assessment and monitoring of vital signs [x] Documentation [x] Medication orders and management Discharge Plan Departure Patient Disposition: [facility] Clinical Impression: Acute back pain, ESRD on dialysis, Closed fracture of lumbar vertebral body, Hypertension Prescriptions: No Action fluticasone propion-salmeterol [Advair Diskus] 100-50 mcg/dose Blister With Device 1 inh INHALATION BID atorvastatin 40 mg PO BEDTIME hydroxyzine HCl 25 mg PO PRN PRN (Reason: Anxiety) levothyroxine 75 mcg PO DAILY Rx Instructions: @0600 daily quetiapine 50 mg PO BEDTIME carvedilol 12.5 mg tablet 12.5 mg PO BID alendronate 70 mg tablet 70 mg PO WEEKLY Rx Instructions: Once a week on empty stomach with 8oz of water. Sit upright for 30 minutes afterwards. Osteroporosis. prednisone 20 mg tablet 20 mg PO DAILY methocarbamol 500 mg tablet 500 mg PO 4XD PRN (Reason: Pain, Moderate) Rx Instructions: Carried with to dialysis sulfamethoxazole-trimethoprim 400-80 mg tablet 1 tab PO DAILY cholecalciferol (vitamin D3) [Vitamin D3] 50 mcg (2,000 unit) Capsule 50 mcg PO DAILY calcium acetate 667 mg Tablet 667 mg PO TID Referrals: Miscellaneous,Doctor, [Primary Care Provider] -
--- NOTE | 2024-02-09 17:56 | DI.RAD.S_ITS ---
PROCEDURE: XR LUMBAR SPINE 2-3V INDICATIONS: Low back pain TECHNIQUE: 3 views of the lumbar spine were acquired. COMPARISON: None. FINDINGS: Bones: 5 [id number]-hcgbhns vertebrae are present. There is normal bony alignment there is age indeterminate anterior compression deformity of L5. No suspicious bony lesions. Mild multilevel degenerative changes of the visualized spine. Soft tissues: Overlying bowel gas pattern is normal. No suspicious soft tissue calcifications. Vascular calcifications are present. IMPRESSION: Age-indeterminate L5 compression deformity. Approved by: Kirsten Winter M.D.,Ph.D. on 02/09/2024 at 17:59
--- NOTE | 2024-02-09 18:15 | PC.NURSE ---
patient able to stand and pivot to [facility] for xray. Xray notifed that shes ready
[2024-02-09] MEDS: MORPHINE 2 MG/ML INJ IV (19:53)
[2024-02-09] MEDS: hydrOXYzine HCL 25 MG TABLET PO (20:44)
[2024-02-09] MEDS: ATORVASTATIN 20 MG TABLET 80 MG PO (20:44)
[2024-02-09] MEDS: QUETIAPINE 25 MG TABLET PO (20:45)
[2024-02-09] MEDS: carvediloL 12.5 MG TABLET PO (20:45)
[2024-02-09] MEDS: ACETAMINOPHEN 325 MG TABLET 975 MG PO (21:07)
[2024-02-09 21:15] LABS: Add Manual Diff / Slide Review NO; Basophils Absolute Auto 0 /uL (0-100); Basophils Percent Auto 0.4 % (0-2); Eosinophils Absolute Auto 0 /uL (0-450); Hematocrit 30.2 % (36-46); Hemoglobin 10.4 g/dL (12.0-16.0); Lymphocytes Absolute Auto 700 /uL (1100-4500); Lymphocytes Percent Auto 10.6 % (25-40); Mean Corpuscular HGB Conc 34.5 % (30-36); Mean Corpuscular Hemoglobin 31.6 PG (26-34); Mean Corpuscular Volume 91.8 fL (80-100); Monocytes Absolute Auto 200 /uL (0-900); Monocytes Percent Auto 3.4 % (3-14); Neutrophils Absolute Auto 5700 /uL (1500-7000); Neutrophils Percent Auto 85.6 % (50-75); Platelet Count 149 X10^3/uL (150-400); Red Blood Cell Count 3.29 X10^6/uL (4.0-5.2); Red Cell Distribution Width 15.8 % (11.6-14.8); White Blood Cell Count 6.7 X10^3/uL (4.5-11.0)
--- NOTE | 2024-02-09 21:15 | PC.NURSE ---
patient is in the room and is alert. She was assessed by the doctor and given her nightly RX meds according to her personal records. She was medicated for pain with morphine. she was also given Tylenol for pain. She is able to tolerate PO fluids food.
[2024-02-09 21:23] LABS: INR 0.9 (0.9-1.3); Prothrombin Time 10.3 SECONDS (9.4-12.5)
[2024-02-09 21:26] LABS: Alanine Aminotransferase 12 IU/L (<35); Albumin 3.8 g/dL (3.5-5.0); Albumin Globulin Ratio 1.8 (1.0-2.8); Alkaline Phosphatase 59 U/L (38-126); Aspartate Aminotransferase 22 IU/L (14-36); BUN Creatinine Ratio 5.1 (6-22); Bilirubin Total 0.9 mg/dL (0.2-1.3); Blood Urea Nitrogen 27 mg/dL (7-17); Calcium 8.8 mg/dL (8.4-10.2); Carbon Dioxide 30 mmol/L (22-32); Chloride 99 mmol/L (98-107); Estimated Glomerular Filt Rate 8 mL/min (>60); Globulin 2.1 g/dL (1.7-4.1); Glucose 106 mg/dL (80-110); HEMOLYSIS < 15 (0-50); PTT Partial Thromboplastin Tim 29 SECONDS (25.1-36.5); Potassium 3.9 mmol/L (3.4-5.1); Sodium 135 mmol/L (137-145); Total Protein 5.9 g/dL (6.3-8.2)
--- NOTE | 2024-02-09 21:37 | DI.CT.S_ITS ---
PROCEDURE: CT HEAD/BRAIN WO CON INDICATIONS: cab[place], htn 200s TECHNIQUE: Noncontrast 4.5 mm thick angled axial sections acquired from the foramen magnum to the vertex, with coronal and sagittal reformats. For radiation dose reduction, the following was used: automated exposure control, adjustment of mA and/or kV according to patient size. COMPARISON: [facility], CT, CT HEAD/BRAIN WO CON, 01/29/2024, 19:50. FINDINGS: Image quality: Diagnostic. CSF spaces: Basal cisterns are patent. No extra-axial fluid collections. The ventricles are symmetric in size and shape. Brain: No intracranial bleeds or masses. There is cerebral volume loss for age, with resultant ventricular and sulcal prominence. There are periventricular and deep white matter chronic small vessel ischemic changes. There is intracranial internal carotid artery atherosclerosis. Skull and face: Calvarium and visualized facial bones appear intact, without suspicious lesions. Sinuses: Mucosal thickening in paranasal sinuses is again seen. Mastoids are clear. IMPRESSION: No acute intracranial pathology. No significant changes from previous study. Dictated by: Kwadwo Faulkner M.D. on 02/09/2024 at 22:50 Approved by: Kwadwo Faulkner M.D. on 02/09/2024 at 22:51
[2024-02-10] VITALS (62 sets, daily range): BP systolic 185–251; BP diastolic 85–119; PULSE 54–92; RESP 18–24; TEMP 36.8; O2SAT 88–97
--- NOTE | 2024-02-10 00:35 | PC.NURSE ---
FEEDER OPERATOR AUTOMATIC note: Attempted to get patient up to bedside to walk. Patient is laying on her right side. Used log roll to try to sit up and patient couldn't sit up. Attempted two times. Patient began to cry/whimper saying I can't do this. My back hurts too much. I can't do this. Told CAROLA Spencer
[2024-02-10] MEDS: OXYCODONE/ACETAMINOPHEN 5/325 TABLET 2 TAB PO ×3 (05:08→19:22)
--- NOTE | 2024-02-10 08:01 | PC.NURSE ---
Addendum entered by Jamir Mendoza R.N. 02/10/24 08:12: Pt requested her methocarbomol dose this morning in addition, 500mg. Pt took this from her own medications she brought. Original Note: Pt stated she needs her morning medications which she brought in a bag with her. Pt verified with her medlist that in the morning she takes 75mcg levothyroxine 25mg hydroxyzine Hcl 25mg Losartan Potassium 12.5mg Carvedilol Provider notified and agrees patient can take her own medications. Pt assisted with medications due to poor vision. Pt received morning dose levothyroxine, hydroxyzine, losartan, and carvedilol.
--- NOTE | 2024-02-10 08:13 | PC.NURSE ---
Assisted patient to reposition to take daily medications. Pt requested I hand her each pill one at a time. Pt had difficulty grabbing medications. She displayed difficulty with hand dexterity while repositioning her call light. She reports difficulty at home and acute on chronic right back pain. She reports meeting with a social worker delinquency prevention from [facility] last week for 3 hours while he asked me a million questions and that her medicaid is running out on the , so we are trying to work fast. Pt mentions needing further assistance with ADL's at home and having difficulty with opening pill bottles.
--- NOTE | 2024-02-10 08:16 | DI.CT.S_ITS ---
PROCEDURE: CT LUMBAR SPINE WO CON INDICATIONS: low back pain, L5 fracture of indeterminate age TECHNIQUE: Noncontrast 3 mm thick sections acquired from the T12 level to the sacrum. Sagittal and coronal reformats were constructed. For radiation dose reduction, the following was used: automated exposure control. COMPARISON: , CR, XR LUMBAR SPINE 2-3V, 02/09/2024, 18:18. FINDINGS: Image quality: Excellent. Bones: Diffusely decreased osseous mineralization. Mild levocurvature of the lumbar spine. Mild compression deformity of the superior endplate of L1. Gjra-rg-ocxsotyq compression deformity of the superior endplate of L5. Facet arthropathy of the lower lumbar spine. No pars interarticularis defects. No significant osseous central canal or neural foraminal stenosis. Soft tissues: No retroperitoneal masses or hematomas. Visualized aorta is normal in caliber. Atherosclerotic vascular calcifications. Small right pleural effusion with adjacent atelectasis versus consolidation. IMPRESSION: Mild compression deformity of the superior endplate of L1. Fbjg-sp-urmbvtdf compression deformity of the superior endplate of L5. No retropulsion. Mild degenerative changes of the spine. Small right pleural effusion. Dictated by: Hudson Morrow M.D. on 02/10/2024 at 9:02 Approved by: Hudson Morrow M.D. on 02/10/2024 at 9:05
--- NOTE | 2024-02-10 09:36 | PT.IIE ---
Medical History (Last Reviewed 02/09/24 @ 18:16 by RUBI Llamas) Anxiety Asthma Goodpasture syndrome Hemodialysis patient HTN (hypertension) Hypothyroid Insomnia Physical Therapy Inpatient Evaluation/Re-Eval M1 PT/OT-IP Prior Functional Status Start: 02/10/24 08:25 Freq: Status: Active Protocol: Document 02/10/24 08:30 MB (Rec: 02/10/24 09:34 MB [id number]) Medical Review Prior Functional Status Medical History Reviewed Yes Communication Unsure baseline diet, communication likely normal Mobility and Gait Mod I with rollator Activities of Daily Living and IADL's Pt reports mod I with bathing, dressing Social History Household Members none Living Arrangements Mobile home Number of Floors (Floors) One Floor Number of Stairs To Enter/Railing? No steps to enter Home Environment Standard Height Toilet,Walk in Shower,Built-In Shower Seat, Ramp Home Equipment Four Wheel Walker Additional Social History Comment Pt is not working M2 PT-IP Current Condition Start: 02/10/24 08:25 Freq: Status: Active Protocol: Document 02/10/24 08:30 MB (Rec: 02/10/24 09:34 MB [id number]) Physical Therapy Current Condition Current Condition Evaluation Date 02/10/24 Treatment Diagnosis LBP and pt denies fall, does state she intentionally slid off couch to move M3 PT-IP Subjective Start: 02/10/24 08:25 Freq: Status: Active Protocol: Document 02/10/24 08:30 MB (Rec: 02/10/24 09:34 MB [id number]) Subjective Physical Therapy Visit Type Type Initial Evaluation Visit Start Time 08:30 Visit Stop Time 09:15 Number of RELATIONSHIP COUNSELOR Visits 0 Physical Therapy Visit Comments Patient Comments Pt states that she just wants to sleep and she c/o high back pain, up to 10, with mobility . She denies fall/mechanism of injury. Therapy Pain Assessment Pain When Pain Assessed During Mobility Pain Present Pain Present Pain Reported Location lower back Intensity 10 Scale Used Numeric (0 - 10) Pain Behaviors Calling Out,Facial Grimacing, Guarding M4 PT-IP Mobility and Gait Start: 02/10/24 08:25 Freq: Status: Active Protocol: Document 02/10/24 08:30 MB (Rec: 02/10/24 09:34 MB [id number]) PT-Bed Mobility Assessment Rolling Type of Rolling Roll to Right,Roll to Left Level of Assist Contact Guard Assistance,1 Person Assistance PT-Transfer Assessment Comments Mobility Comments PT initiates education for log rolling to protect back and pt is willing to participate and she is able to bend knees and straighten them and then roll to back from right side lying and then from back to right side lying on gurney. Gurney does not have functional rails and is very narrow. Pt does grab PT's hand but appears more for encouragement and PT does not physically assist rolling. Pt calls out in pain in back with rolling and declines OOB. Pt requires encouragement to adjust her own head pillow when she cries out as PT attempts to assist with head pillow. PT places pillow between knees. M5 PT-IP Objective Assessments Start: 02/10/24 08:25 Freq: Status: Active Protocol: Document 02/10/24 08:30 MB (Rec: 02/10/24 09:34 MB [id number]) Orientation Orientation/Cognition Level of Alertness Alert Orientation Name,Day of Week,Place, Situation Language Function Ability No Deficits Noted Safety Awareness Decreased Safety Awareness Memory Description No Deficits Noted Comments PT does not ask all orientation questions and rather, initiates conversation with asking about events leading up to ED arrival and pt is able to describe all events from dialysis on Saturday, remembering opening door that caused back pain, lying on couch, sliding off couch to move and calling EMS to transport her to the hospital Gross Range of Motion Upper Extremity ROM Impairments Declines range testing Lower Extremity ROM Impairments B ankle DF normal, declines further ROM this a.m. Strength Comments Strength Comments Pt declines MMT Sensation Assessment Comments Sensation Comments Pt reports some paresthesias B plantar feet Muscle Tone Muscle Tone WNL Yes M6 PT-IP Treatment Start: 02/10/24 08:25 Freq: Status: Active Protocol: Document 02/10/24 08:30 MB (Rec: 02/10/24 09:34 MB [id number]) Physical Therapy Treatment Exercises Exercises Ankle Pumps Education Education Provided Precautions,Safety Other Treatments Other Treatment Performed Ed pt in log rolling technique to assist with back pain M7 PT-IP Assessment and Plan Start: 02/10/24 08:25 Freq: Status: Active Protocol: Document 02/10/24 08:30 MB (Rec: 02/10/24 09:34 MB [id number]) PT Summary Assessment and Plan Potential Rehabilitation Potential Fair Status of Condition at Evaluation Evolving Summary Impairments Pain,ROM,Strength,Balance,Bed Mobility,Transfers,Gait, Activity Tolerance Progress Towards Goals Slow Progress due to Pain Assessment Summary Pt is a 73 y/o female presenting with complicated medical history including kidney failure requiring T/Th/ Sat dialysis since September, hypertension and back pain. Diagnostics reveal age indeterminate changes L5 and pt denies any recent falling. She points directly to L5 area when asked where her pain is located. She describes reaching to open door into mobile home after dialysis on Saturday and having back pain at that time and that she was unable to get off the couch and rolled off because she couldn't get up. She called EMS at that time. Pt states her sister and 92 y/o mother live in [place]. Pt lives in [place] and states that she does need more help. She is reluctant to leave her home d/t two cats. Pt has high pain that limits even simple bed mobility, sitting and standing today. She currently requires SNF level of care at d/c. BP is high in LUE in side lyin/94, 74. She is on 2L O2 in the ED and sats are in the mid 90s. She is not on O2 at home. Goals Bed Mobility Goal Independent Transfer Goal Independent,Front Wheeled Walker,Four Wheeled Walker Gait Goal Independent,Front Wheel Walker ,Four Wheel Walker Gait Distance 75 Days to Meet Goals 5 Frequency of Treatment Frequency Of Treatment Once a Day Treatment Plan Physical Therapy Treatment Plan Bed Mobility Training,Transfer Training,Gait Training, Therapeutic Exercise,Balance Retraining,Discharge Planning, Hot or Cold Pack,Neuromuscular Re-ed,Manual Therapy Precautions Other Precautions Initiated log rolling training given pain and changes at L5 Weight Bearing Status Weight Bearing Status Weight Bear as Tolerated Recommendations To Nursing Amount of Assist Needed Mechanical Lift Discharge Recommendations PT Discharge Recommendations SNF Rehab Transportation Needs at Discharge Private Vehicle
--- NOTE | 2024-02-10 11:00 | PC.NURSE ---
Pt was found with nasal cannula off of her face, stating she was panicking. replaced NC on 2L and assisted patient with deep breathing exercises. Provider notified, new orders established.
[2024-02-10] MEDS: ALBUTEROL 2.5 MG/3 ML NEB (ADULT) INH (11:24)
[2024-02-10] MEDS: carvediloL 12.5 MG TABLET PO (12:46)
[2024-02-10] MEDS: CHOLECALCIFEROL (VITAMIN D3) 1,000 UNIT TABLET 2000 UNIT PO (12:47)
[2024-02-10] MEDS: HYDRALAZINE 20 MG/ML VIAL 5 MG IV ×2 (13:41→16:13)
[2024-02-10] MEDS: predniSONE 20 MG TABLET PO (13:43)
--- NOTE | 2024-02-10 16:07 | PC.NURSE ---
RN discussed hypertension with Dr. Lomax and need to get patient transferred to another facility that can provide dialysis. RN and SPRAY DRIER OPERATOR HELPER have called [facility] to try to get the patient there (has stayed there previously) without any success today; attempting to transfer her for more advanced level of care/dialysis.
--- NOTE | 2024-02-10 17:27 | CM.SWNOTE ---
ED PLATEN PRESS OPERATOR APPRENTICE Assessment: Pt is a 73yo female, resident of [place], presented to the ED yesterday due to pack pain from a closed fx of lumbar vertebral body. Pt lives alone in a mobile home. Pt does not have an Advanced Directive on file but sister is healthcare proxy, Nadeem (ph#[phone]). Pt?s primary care provider is RUBI Mi and insurance is [employer]. PLATEN PRESS OPERATOR APPRENTICE was consulted due to pt?s unstable living situation as pt is not able to ambulate independently as well as concern for self-neglect. PLATEN PRESS OPERATOR APPRENTICE reviewed EMR and discussed pt with ED staff. Per RN, pt has dialysis scheduled for tomorrow, Saturday, 02/10, and [facility] is not able to accommodate this intervention on campus or transport while pt is boarding in ED. It is reported that pt received hemodialysis services at [facility]. PT completed an assessment and recommended that pt be placed at a [facility]. PLATEN PRESS OPERATOR APPRENTICE entered room, introduced self and role. Pt was found lying in bed, appearing to be somnolent and requested that she does not participate in assessment at this time due to pain. Per RN, pt?s sister, Nadeem, was requesting updates and pt was giving consent for medical team to discuss her plan of care. PLATEN PRESS OPERATOR APPRENTICE called pt?s sister, Nadeem, introduced self and role. Pt?s sister spoke at length about concern for pt?s living situation and hope that she can be transferred to an assisted living facility in the future. Pt sister confirmed that pt participated in an assessment with a social worker delinquency prevention at [facility] for placement/long-term care insurance. It was reported that sister was a patient at [facility] in [place] for 3 months and was placed at [facility] for over a month in November. Since then, pt has had multiple presentations at Emergency Departments as they do not feel stable being at home alone. Pt?s sister explained although she is a retired nurse and primary healthcare management for their 94yo mother, she does not wish to take on the role as caregiver for her sister in her home at this time. Pt?s sister reports pt?s living conditions are ?not livable? and relayed that pt has reported she is not able to eat proper meals or bathe herself. Pt sister explains pt has not bathed since her last hospital admission. Pt sister explains, ?She does everything she can just to get to her next dialysis appointment.? Pt sister reports pt is not able to drive herself and utilizes paratransit to get to medical appointments. PLATEN PRESS OPERATOR APPRENTICE called [facility] and confirmed that pt obtains services at their clinic. PLATEN PRESS OPERATOR APPRENTICE left a voice message with Damian Li, web content & social media manager. PLATEN PRESS OPERATOR APPRENTICE placed APS incident report for suspicions of self-neglect, as reported by sister. APS Incident Report #: [id number]. Plan: Plan: ED staff in the process of transferring pt for higher level of care who can provide hemodialysis services. GRACY Chiang
[2024-02-10 17:28] LABS: Alanine Aminotransferase 11 IU/L (<35); Albumin 3.8 g/dL (3.5-5.0); Albumin Globulin Ratio 1.7 (1.0-2.8); Alkaline Phosphatase 61 U/L (38-126); Aspartate Aminotransferase 25 IU/L (14-36); BUN Creatinine Ratio 5.6 (6-22); Bilirubin Total 1.2 mg/dL (0.2-1.3); Blood Urea Nitrogen 35 mg/dL (7-17); Calcium 8.5 mg/dL (8.4-10.2); Carbon Dioxide 25 mmol/L (22-32); Chloride 102 mmol/L (98-107); Estimated Glomerular Filt Rate 7 mL/min (>60); Globulin 2.2 g/dL (1.7-4.1); Glucose 118 mg/dL (80-110); HEMOLYSIS 50 (0-50); Potassium 4.1 mmol/L (3.4-5.1); Sodium 134 mmol/L (137-145)
[2024-02-10] MEDS: LABETALOL 20 MG/4 ML SYRINGE 10 MG IV (18:19)
[2024-02-10] MEDS: LABETALOL 20 MG/4 ML SYRINGE IV (19:22)
--- NOTE | 2024-02-10 19:54 | PC.NURSE ---
Rm 776 elijah Borges /Report [phone]
== END 2024-02-10 20:46 | disposition short-term general hospital (02) ==
PROVIDERS: Emergency Medicine; Emergency Provider Emergency Medicine
DX: S32.059A Unspecified fracture of fifth lumbar vertebra, initial encounter for closed fracture (principal); R51.9 Headache, unspecified; M54.2 Cervicalgia; I12.0 Hypertensive chronic kidney disease with stage 5 chronic kidney disease or end stage renal disease; N18.6 End stage renal disease; Z99.2 Dependence on renal dialysis; X58.XXXA Exposure to other specified factors, initial encounter; F17.210 Nicotine dependence, cigarettes, uncomplicated
CPT/HCPCS: 70450; 72100; 72131; 80053; 83735; 85025; 85610; 85730; 94640; 96374; 96375; 96376; 97162; 97530; 99285; 99291; A9270; J0360; J2270; J7613

== ENCOUNTER 2024-03-10 19:22 | Emergency (ER) | payer OTHER, SELFPAY ==
[2024-03-10] VITALS (15 sets, daily range): BP systolic 187–210; BP diastolic 91–105; PULSE 69–94; RESP 18; TEMP 36.6; O2SAT 92–95; BMI 27.4
--- NOTE | 2024-03-10 19:30 | EKG_ITS ---
[address] [address] Test Date: 2024-03-10 Pat Name: Sheeba Hayes Department: Room: Gender: Female Appeals Examiner: WANDA : 1950 Requested By: Order Number: [id number] Reading MD: Angel Lynn Measurements Intervals [place] Rate: 83 P: 73 WA: 144 QRS: 31 QRSD: 72 T: 80 QT: 394 QTc: 462 Interpretive Statements Sinus rhythm with premature atrial complexes Cannot rule out Anterior infarct , age undetermined Electronically Signed On 03-11-2024 19:43:10 PDT by Angel Lynn
--- NOTE | 2024-03-10 19:34 | PC.NURSE ---
pt went to dialysis today she had a h/a but after dialysis the h/a subsided, pt completed her dialysis cycle but continued to be hypertensive, pt's sister wanted her to come and get checked out pt has not been taking her coreg, pt denies anys/s at this time
--- NOTE | 2024-03-10 21:02 | ED.GENADULT ---
HPI - General Adult General Chief complaint: Hypertension Stated complaint: HTN Time Seen by Provider: 03/10/24 19:31 Source: EMS Mode of arrival: EMS History of Present Illness HPI narrative: 73-year-old female with history of ESRD on Saturday dialysis, hypertension, hyperlipidemia, Goodpasture syndrome presents by EMS for elevated blood pressure. Patient states that she accidentally ripped the stitches of her catheter and had to have them Re stitched at dialysis. At the center patient had a blood pressure greater than 200 systolic. Patient's sister requested that patient be evaluated. Patient did complete a full dialysis session today. Patient denies any complaints today. She states that she does not normally check her blood pressure at home. She states it is usually at least 180-190 systolic at dialysis. Related Data Home Medications Medication Instructions Recorded Confirmed atorvastatin 40 mg PO BEDTIME 02/20/21 02/10/24 fluticasone 100 mcg-salmeterol 50 1 inh inhalation BID 02/20/21 02/09/24 mcg/dose blistr powdr for inhalation (Advair Diskus) hydroxyzine HCl 25 mg PO PRN PRN Anxiety 02/20/21 02/10/24 levothyroxine 75 mcg PO DAILY 02/20/21 02/09/24 quetiapine 50 mg PO BEDTIME 02/20/21 02/10/24 alendronate 70 mg tablet 70 mg PO WEEKLY 02/10/24 02/10/24 calcium acetate 667 mg tablet 667 mg PO TID 02/10/24 02/10/24 carvedilol 12.5 mg tablet 12.5 mg PO BID 02/10/24 02/10/24 cholecalciferol (vitamin D3) 50 50 mcg PO DAILY 02/10/24 02/10/24 mcg (2,000 unit) capsule (Vitamin D3) methocarbamol 500 mg tablet 500 mg PO 4XD PRN Pain, Moderate 02/10/24 02/10/24 prednisone 20 mg tablet 20 mg PO DAILY 02/10/24 02/10/24 sulfamethoxazole 400 1 tab PO DAILY 02/10/24 02/10/24 mg-trimethoprim 80 mg tablet Previous Rx's Medication Instructions Recorded hydralazine 25 mg tablet 25 mg PO TID #60 tabs 03/10/24 Allergies Allergy/AdvReac Type Severity Reaction Status Date / Time amoxicillin Allergy Verified 01/29/24 19:25 Patient History Medical History Hemodialysis patient Goodpasture syndrome Hypothyroid Insomnia HTN (hypertension) Asthma Anxiety Social History household members: none Smoking Status: Current every day smoker alcohol intake: current Smoking Status: Current every day smoker alcohol intake frequency: 3 or more drinks per day Substance Use Type: does not use Exam Initial Vital Signs Initial Vital Signs: Vital Signs Temperature 97.9 F 03/10/24 19:27 Pulse Rate 80 03/10/24 19:27 Respiratory Rate 18 03/10/24 19:27 Blood Pressure 198/99 H 03/10/24 19:27 Pulse Oximetry 94 03/10/24 19:27 Oxygen Delivery Method Room Air 03/10/24 19:27 Const: Awake, alert, no acute distress Cardiac: regular rate, regular rhythm RESP: unlabored, clear bilaterally, no wheezing Skin: Warm, Dry, intact, no rashes Neuro: AO x3, CN II-XII grossly intact, moves all extremities Course Orders Ordered: ED Orders 03/10/24 20:30 EKG-12 Lead Stat Discontinued Medications Carvedilol (Carvedilol 12.5 Mg Tablet) 12.5 mg PO NOW ONE Stop: 03/10/24 21:02 Last Admin: 03/10/24 21:20 Dose: 12.5 mg Documented By: LESLIE Hydralazine HCl (Hydralazine 20 Mg/Ml Vial) 10 mg IV NOW ONE Stop: 03/10/24 21:02 Last Admin: 03/10/24 21:13 Dose: 10 mg Documented By: LESLIE Hydralazine HCl (Hydralazine 20 Mg/Ml Vial) 10 mg IV NOW ONE Stop: 03/10/24 22:21 Last Admin: 03/10/24 22:39 Dose: 10 mg Documented By: LESLIE Hydralazine HCl (Hydralazine 20 Mg/Ml Vial) 20 mg IV NOW ONE Stop: 03/10/24 23:21 Last Admin: 03/10/24 23:31 Dose: 20 mg Documented By: HNG Vital Signs Vital signs: Vital Signs - 8 hr 03/10/24 19:27 03/10/24 19:38 03/10/24 20:00 Temperature 97.9 F Pulse Rate 80 76 71 Respiratory Rate 18 Blood Pressure 198/99 H Pulse Oximetry 94 94 95 Oxygen Delivery Method Room Air 03/10/24 20:00 03/10/24 20:30 03/10/24 20:30 Temperature Pulse Rate 79 Respiratory Rate 18 Blood Pressure 195/100 H 210/105 H Pulse Oximetry 94 Oxygen Delivery Method 03/10/24 21:00 03/10/24 21:01 03/10/24 21:01 Temperature Pulse Rate 76 77 Respiratory Rate Blood Pressure 196/103 H Pulse Oximetry 94 94 Oxygen Delivery Method 03/10/24 21:23 03/10/24 21:23 03/10/24 21:30 Temperature Pulse Rate 86 78 Respiratory Rate Blood Pressure 203/100 H Pulse Oximetry 95 95 Oxygen Delivery Method 03/10/24 21:30 03/10/24 21:37 03/10/24 22:00 Temperature Pulse Rate 69 77 Respiratory Rate Blood Pressure 187/98 H 187/98 H Pulse Oximetry 94 Oxygen Delivery Method 03/10/24 22:00 03/10/24 22:30 03/10/24 22:30 Temperature Pulse Rate 69 Respiratory Rate Blood Pressure 193/102 H 191/101 H Pulse Oximetry 94 Oxygen Delivery Method 03/10/24 23:00 03/10/24 23:00 03/10/24 23:30 Temperature Pulse Rate 82 85 Respiratory Rate Blood Pressure 192/91 H Pulse Oximetry 92 92 Oxygen Delivery Method 03/10/24 23:30 03/10/24 23:31 03/10/24 23:54 Temperature Pulse Rate 94 H 85 Respiratory Rate Blood Pressure 207/93 H 207/93 H 207/93 H Pulse Oximetry Oxygen Delivery Method Medical Decision Making MDM Narrative Medical decision making narrative: Asymptomatic hypertension in patient with longstanding hypertension. Has history of ESRD on dialysis. Patient states that her usual blood pressure at dialysis is usually at least 180 systolic, she is not much higher than that today. In absence of symptoms little utility for blood work or imaging at this time. Hypertension likely caused by ESRD. Patient given several doses of IV blood pressure medications with stable blood pressures. No indication for admission at this time. Patient was not in extremis, has no evidence of new end-organ damage other than her previously known ESRD. Patient counseled that she may increase her Coreg to 25 mg twice daily, also plan to add hydralazine p.o. to her regimen. She was counseled to follow up with her clinic administrator. Discharge Plan Departure Patient Disposition: Home Clinical Impression: Hypertension, ESRD (end stage renal disease) on dialysis Instructions: DI for High Blood Pressure Activity Restrictions/Additional Instructions: It is extremely important that you take all of your medications as prescribed. I would recommend increasing your carvedilol to 25 mg twice daily. I will also start you on a new oral blood pressure medication called hydralazine. Take this 3 times daily. Start at 25 mg every 3 times daily for 2-4 days. You may increase to 50mg three times daily after 2-4 days if you continue to have elevated blood pressures Prescriptions: New hydralazine 25 mg tablet 25 mg PO TID Qty: 60 0RF No Action fluticasone propion-salmeterol [Advair Diskus] 100-50 mcg/dose Blister With Device 1 inh INHALATION BID atorvastatin 40 mg PO BEDTIME hydroxyzine HCl 25 mg PO PRN PRN (Reason: Anxiety) levothyroxine 75 mcg PO DAILY Rx Instructions: @0600 daily quetiapine 50 mg PO BEDTIME carvedilol 12.5 mg tablet 12.5 mg PO BID alendronate 70 mg tablet 70 mg PO WEEKLY Rx Instructions: Once a week on empty stomach with 8oz of water. Sit upright for 30 minutes afterwards. Osteroporosis. prednisone 20 mg tablet 20 mg PO DAILY methocarbamol 500 mg tablet 500 mg PO 4XD PRN (Reason: Pain, Moderate) Rx Instructions: Carried with to dialysis sulfamethoxazole-trimethoprim 400-80 mg tablet 1 tab PO DAILY cholecalciferol (vitamin D3) [Vitamin D3] 50 mcg (2,000 unit) Capsule 50 mcg PO DAILY calcium acetate 667 mg Tablet 667 mg PO TID Referrals: Miscellaneous,Doctor, MD [Primary Care Provider] - Stand Alone Forms: Patient Portal/API
[2024-03-10] MEDS: HYDRALAZINE 20 MG/ML VIAL 10 MG IV ×2 (21:13→22:39)
[2024-03-10] MEDS: carvediloL 12.5 MG TABLET PO (21:20)
[2024-03-10] MEDS: HYDRALAZINE 20 MG/ML VIAL IV (23:31)
--- NOTE | 2024-03-11 00:20 | PC.NURSE ---
Pt fearful about being home alone. Pt and This health technician hearing called Pts home health team ([facility] ) and spoke with the train controller nurse about the Pt's living situation. The supervisor asbestos textile nurse stated she would put in a request for [facility] to have their Social work call her later today (03/11/24. Pt states she would rather be discharged to the lobby instead of going home. Pt states she will call her brother in law or call for a cab in the morning to go home. Discussed this with RN and Provider
== END 2024-03-11 00:41 | disposition home or self-care (01) ==
PROVIDERS: Emergency Provider Emergency Medicine
DX: I10 Essential (primary) hypertension (principal); N18.6 End stage renal disease; Z99.2 Dependence on renal dialysis; R07.9 Chest pain, unspecified
CPT/HCPCS: 93005; 96374; 96376; 99284; J0360